=== PATIENT | male | born 1940 | race Caucasian/White ===

== ENCOUNTER → 2016-11-08 | Outpatient (CLI) | payer BC ==
[~2016-11-08] MED LIST: HYZ/50125 PO; PRED1SUS3; SIMV20TA2 PO
[2016-11-08 11:05] LABS: ALT/SGPT 45 U/L (12-78); AST/SGOT 29 U/L (15-37); BLOOD UREA NITROGEN 16 mg/dl (7-18); BUN/CREATININE RATIO 17.9 (10-20); CALCIUM 10.5 mg/dl (8.5-10.1); CARBON DIOXIDE 29 mmol/L (21-32); CHLORIDE 106 mmol/L (98-107); CHOLESTEROL 123 mg/dl (0-200); CREATININE 0.91 mg/dl (0.60-1.40); GLUCOSE 150 mg/dl (70-99); POTASSIUM 4.3 mmol/L (3.5-5.1); SODIUM 140 mmol/L (136-145)
[2016-11-08 11:09] LABS: ALB/GLOB RATIO 1.1 (0.9-2); ALKALINE PHOSPHATASE 47 U/L (45-117); HDL CHOLESTEROL 41 mg/dl; LDL CHOLESTEROL CALCULATED 41 mg/dl; TRIGLYCERIDES 205 mg/dl (0-150); VERY LOW DENSITY LIPOPROT CALC 41 mg/dl
[2016-11-08 11:17] LABS: ESTIMATED AVERAGE GLUCOSE 151 mg/dl; HA1C FLAG Normal (Normal)
== END | disposition home or self-care (01) ==
LOC: C.LABBC 07:00
PROVIDERS: ATTEND Internal Medicine
DX: E11.9 Type 2 diabetes mellitus without complications (principal); E78.5 Hyperlipidemia, unspecified; E83.52 Hypercalcemia; E55.9 Vitamin D deficiency, unspecified

== ENCOUNTER → 2017-07-28 | Outpatient (CLI) | payer BC ==
[2017-07-28 11:03] LABS: HEMATOCRIT 45.9 % (42-52); HEMOGLOBIN 15.6 g/dL (14.0-18.0); MEAN CELL VOLUME 90.7 fL (80-100); MEAN CORPUSCULAR HEMOGLOBIN 30.8 pg (25-34); MEAN PLATELET VOLUME 10.5 fL (7.4-10.4); PLATELET COUNT 189 K/uL (130-400); RED CELL DISTRIBUTION WIDTH CV 13.9 % (11.5-14.5); RED CELL DISTRIBUTION WIDTH SD 45.4 fL (36.4-46.3); WHITE BLOOD COUNT 5.76 K/uL (4.8-10.8)
[2017-07-28 11:31] LABS: BLOOD UREA NITROGEN 17 mg/dl (7-18); CREATININE 1.02 mg/dl (0.60-1.40); GLUCOSE 202 mg/dl (70-99)
[2017-07-28 11:32] LABS: ALBUMIN 3.6 gm/dl (3.4-5.0); ALT/SGPT 46 U/L (12-78); AST/SGOT 33 U/L (15-37); CALCIUM 10.2 mg/dl (8.5-10.1); CARBON DIOXIDE 24 mmol/L (21-32); POTASSIUM 3.8 mmol/L (3.5-5.1); SODIUM 135 mmol/L (136-145)
[2017-07-28 11:36] LABS: ALKALINE PHOSPHATASE 52 U/L (45-117)
[2017-07-28 12:15] LABS: HEMOGLOBIN A1C 8.7 % (4.5-5.6)
== END | disposition home or self-care (01) ==
LOC: C.LABBC 07:07
PROVIDERS: ATTEND Internal Medicine
DX: E11.9 Type 2 diabetes mellitus without complications (principal); R35.1 Nocturia; E21.3 Hyperparathyroidism, unspecified; E55.9 Vitamin D deficiency, unspecified

== ENCOUNTER → 2017-11-25 | Outpatient (CLI) | payer BC ==
[2017-11-25 11:57] LABS: HEMOGLOBIN A1C 9.1 % (4.5-5.6)
[2017-11-25 12:03] LABS: ALT/SGPT 47 U/L (12-78); AST/SGOT 33 U/L (15-37); BLOOD UREA NITROGEN 14 mg/dl (7-18); CALCIUM 10.3 mg/dl (8.5-10.1); CARBON DIOXIDE 28 mmol/L (21-32); CHOLESTEROL 129 mg/dl (0-200); CREATININE 0.96 mg/dl (0.60-1.40); GLUCOSE 223 mg/dl (70-99); POTASSIUM 4.2 mmol/L (3.5-5.1); SODIUM 136 mmol/L (136-145)
[2017-11-25 12:07] LABS: LDL CHOLESTEROL CALCULATED 44 mg/dl
== END | disposition home or self-care (01) ==
LOC: C.LABBC 07:03
PROVIDERS: ATTEND Internal Medicine
DX: E78.5 Hyperlipidemia, unspecified (principal); I10 Essential (primary) hypertension; E11.9 Type 2 diabetes mellitus without complications

== ENCOUNTER 2021-03-19 08:15 | Inpatient (IN) ==
--- NOTE | 2021-03-02 14:57 | PAT Medication Instructions ---
Medication Instructions Date of Service March 02, 2021 Home Medications Medication Instructions Recorded simvastatin 20 mg tablet 20 mg PO HS #90 tab 03/22/20 metformin 500 mg tablet,extended 1,000 mg PO BID 90 Days #360 tab 03/24/20 release 24 hr (Glucophage XR) naproxen sodium 220 mg capsule 440 mg PO DAILY #10 cap 05/22/20 (Aleve) tamsulosin 0.4 mg capsule 0.4 mg PO HS #90 cap 10/30/20 meloxicam 7.5 mg tablet 7.5 mg PO BID PRN #60 tab 12/20/20 glimepiride 2 mg tablet 2 mg PO BID #180 tab 02/06/21 tramadol 50 mg tablet 50 mg PO BID PRN #60 tab 02/06/21 cholecalciferol (vitamin D3) 50 mcg (2,000 unit) capsule 2,000 units PO PM simvastatin 20 mg tablet 20 mg PO HS metformin 500 mg tablet,extended release 24 hr (Glucophage XR) 1,000 mg PO BID naproxen sodium 220 mg capsule (Aleve) 440 mg PO DAILY tamsulosin 0.4 mg capsule 0.4 mg PO HS meloxicam 7.5 mg tablet 7.5 mg PO BID PRN glimepiride 2 mg tablet 2 mg PO BID tramadol 50 mg tablet 50 mg PO BID PRN hydrochlorothiazide 12.5 mg tablet 12.5 mg PO PM losartan 50 mg tablet 50 mg PO PM ASK your surgeon for instructions meloxicam 7.5 mg tablet 7.5 mg PO BID PRN naproxen sodium 220 mg capsule (Aleve) 440 mg PO DAILY DO NOT take the morning of surgery glimepiride 2 mg tablet 2 mg PO BID metformin 500 mg tablet,extended release 24 hr (Glucophage XR) 1,000 mg PO BID Take morning of surgery With a small sip of water, OTHERWISE NOTHING TO EAT OR DRINK AFTER MIDNIGHT: tramadol 50 mg tablet 50 mg PO BID PRN (okay to take up to 4 hours prior to surgery if needed) Take evening before surgery cholecalciferol (vitamin D3) 50 mcg (2,000 unit) capsule 2,000 units PO PM simvastatin 20 mg tablet 20 mg PO HS metformin 500 mg tablet,extended release 24 hr (Glucophage XR) 1,000 mg PO BID tamsulosin 0.4 mg capsule 0.4 mg PO HS glimepiride 2 mg tablet 2 mg PO BID tramadol 50 mg tablet 50 mg PO BID PRN (if needed) hydrochlorothiazide 12.5 mg tablet 12.5 mg PO PM losartan 50 mg tablet 50 mg PO PM Other Notes If you have any questions please call us at [phone] or [phone] or [phone] or [phone]
--- NOTE | 2021-03-06 08:38 | Anesthesiology Consultation ---
Date of Service March 06, 2021 Assessment & Plan (1) Encounter for pre-operative examination: Chart Review Chart Review: Acceptable Risk for Surgery (pending preop Covid testing and surgeon ordered PCP clearance ) and Patient seen in Pre Admission Testing -Awaiting surgeon ordered PCP clearance scheduled 03/07/21 - Check BSG AM DOS Per PAT appt on 03/06/21, patient denies any recent travel or large group activities. No known Covid positive contacts or Covid related symptoms. No known Covid infection in the past 90 days. Pt is vaccinated for Covid. Preop Covid testing scheduled 03/15/21= will await results. Educated on importance of self quarantining, social distancing and wearing mask in public both for the patient after Covid testing done Teaching & Discussion Pre-Anesthesia Teaching/Discussion Notes: Instructed NPO after midnight before surgery,except medications with 15 cc of water. Medication instructions provided according to the PAT guidelines. History Surgery Operation Date: 03/19/21 09:15 Proposed Procedures p L4-L5 Decompression Fusion, Spinal Cord Monitoring - Yony Salcido DO Height/Weight Height: 5 ft 9 in Weight: 118.6 kg Allergies Allergy/AdvReac Type Severity Reaction Status Date / Time No Known Drug Allergies Allergy Verified 03/01/21 11:24 Medications Home Medications Medication Instructions Recorded Confirmed Last Taken cholecalciferol (vitamin D3) 50 2,000 units PO PM #30 cap 02/25/19 03/01/21 Unknown mcg (2,000 unit) capsule simvastatin 20 mg tablet 20 mg PO HS #90 tab 03/22/20 03/01/21 Unknown metformin 500 mg tablet,extended 1,000 mg PO BID 90 Days #360 tab 03/24/20 03/01/21 Unknown release 24 hr (Glucophage XR) naproxen sodium 220 mg capsule 440 mg PO DAILY #10 cap 05/22/20 03/01/21 Unknown (Aleve) tamsulosin 0.4 mg capsule 0.4 mg PO HS #90 cap 10/30/20 03/01/21 Unknown meloxicam 7.5 mg tablet 7.5 mg PO BID PRN #60 tab 12/20/20 03/01/21 Unknown glimepiride 2 mg tablet 2 mg PO BID #180 tab 02/06/21 03/01/21 Unknown tramadol 50 mg tablet 50 mg PO BID PRN #60 tab 02/06/21 03/01/21 Unknown hydrochlorothiazide 12.5 mg tablet 12.5 mg PO PM 03/01/21 03/01/21 Unknown losartan 50 mg tablet 50 mg PO PM 03/01/21 03/01/21 Unknown Past Medical History Medical History (Updated 03/06/21 @ 08:57 by Deborah Razo PA-C) Hyperlipidemia Hyperparathyroidism Pt unaware Does have hx of hypercalcemia Hypertension Osteoarthritis Scoliosis Snores no apnea dx Type 2 diabetes mellitus NIDDM Glucose stable Exercise / Class Metabolic Activity II 4-5 Yardwork/Stairs/Walk up hill (one flight of stairs - no chest pain or SOB ) Past Family History Family History Father Bone cancer S/P placement of cardiac pacemaker Myocardial infarction Mother Alzheimer disease Myocardial infarction Denies family history of Ovarian cancer Prostate cancer Breast cancer Colorectal cancer Past Surgical History Surgical History History of cataract surgery bilat History of colonoscopy History of tooth extraction History of total right hip arthroplasty Hx of laminectomy lumbar Hx of total knee arthroplasty Left Past Anesthesia History No Hx of Anesthesia Complications and No Family Hx of Anesthesia Complications History of PONV No Hx of PONV and No Hx of Motion Sickness Social History Smoking Status: Never smoker Do You Dip or Chew Tobacco: Yes (1 pouch/week) Hx Alcohol Use: Yes Alcohol type: beer alcohol intake frequency: holidays/special occasions only Hx Substance Use: No substance use type: does not use Review of Systems Snoring- apnea unknown- pt lives alone. No hx of sleep study Patient denies chest pain, shortness of breath, dyspnea on exertion, reflux, cough, wheezing, palpitations. No hx of seizures, stroke, NM. No hx of blood clots or blood transfusions Physical Exam Vital Signs VITALS BP 120/72 P 61 TEMP 98.1 SP02 97% RESP 16 Constitutional no acute distress ENMT Mouth: no TMJ clicking Thyromental Distance: > or= 3.5 Finger Breadths (3.5) Mallampati Class: I Missing molars Neck + thick neck and + limited neck extension (mild ) Respiratory normal respiratory effort; no respiratory distress Auscultation: lungs clear to auscultation bilaterally; no wheezes Cardiovascular Rate/Rhythm: regular rate and regular rhythm (occ missed beat ) Heart Sounds: no murmur Vessels: no carotid bruit Musculoskeletal Spine: no pain with cervical ROM Extremities: extremities normal to inspection Psychiatric Orientation: alert Lab Results Anesthesia Preop Results Results Anesthesia Widget: WBC 7.21 K/uL (4.8-10.8) 03/06/21 Hgb 15.3 g/dL (14.0-18.0) 03/06/21 Hct 44.5 % (42-52) 03/06/21 Plt 233 K/uL (130-400) 03/06/21 Na 136 mmol/L (136-145) 03/06/21 K 4.4 mmol/L (3.5-5.1) 03/06/21 Cl 104 mmol/L (98-107) 03/06/21 CO2 26 mmol/L (21-32) 03/06/21 BUN 13 mg/dl (7-18) 03/06/21 Creat 0.90 mg/dl (0.6-1.4) 03/06/21 Glucose Level 147 mg/dl (70-99) H 03/06/21 PT 10.9 Seconds (9.0-12.0) 03/06/21 PTT 26.8 Seconds (21.0-31.0) 03/06/21 INR 1.1 (0.9-1.1) 03/06/21 HA1c 8.4 % (4.5-5.6) H 01/30/21 Blood Type A Positive 03/06/21 Antibody Screen NEGATIVE 03/06/21 Testing Laboratory Results 01/30/21= HGB A1C: 8.4 Electrocardiogram Date: 03/06/21 Findings: + SB @ (55bpm) RBBB. Echocardiogram Date: 03/05/19 EF: 50-55% LV Function: normal RWMA: + none Other Findings: + LVH (mild/concentric ) and + diastolic dysfunction (Grade I ) Valvular Disease: + no significant valvular disease
[~2021-03-19 08:15] MED LIST changes: +ACETAMINOPHEN 500 MG TAB PO SCH; +CeleBREX 200 MG CAP PO SCH; +GABAPENTIN 300 MG CAP PO SCH; -HYZ/50125 PO; +LR 15ML/HR IV SCH; -PRED1SUS3; -SIMV20TA2 PO; +ceFAZolin 2000MG 2,000 MG/15 ML SYR IV SCH
--- NOTE | 2021-03-19 09:47 | History & Physical Report ---
Date of Service March 19, 2021 Assessment & Plan (1) Neurogenic claudication due to lumbar spinal stenosis: Plan: L4-L5 decompression fusion History of Present Illness Chief Complaint: Back and bilateral leg pain Primary Care Provider: Hua Batres MD This is a 81-year-old male presents with chronic system back and leg pain after failing course of nonoperative care is here for surgical invention. Allergies Allergy/AdvReac Type Severity Reaction Status Date / Time No Known Drug Allergies Allergy Verified 03/19/21 09:19 Home Medications Medication Instructions Recorded Confirmed Type cholecalciferol (vitamin D3) 50 2,000 units PO PM #30 cap 02/25/19 03/19/21 History mcg (2,000 unit) capsule simvastatin 20 mg tablet 20 mg PO HS #90 tab 03/22/20 03/19/21 Rx metformin 500 mg tablet,extended 1,000 mg PO BID 90 Days #360 tab 03/24/20 03/19/21 Rx release 24 hr (Glucophage XR) naproxen sodium 220 mg capsule 440 mg PO DAILY #10 cap 05/22/20 03/19/21 Rx (Aleve) tamsulosin 0.4 mg capsule 0.4 mg PO HS #90 cap 10/30/20 03/19/21 Rx glimepiride 2 mg tablet 2 mg PO BID #180 tab 02/06/21 03/19/21 Rx tramadol 50 mg tablet 50 mg PO BID PRN #60 tab 02/06/21 03/19/21 Rx hydrochlorothiazide 12.5 mg tablet 12.5 mg PO PM 03/01/21 03/19/21 History losartan 50 mg tablet 50 mg PO PM 03/01/21 03/19/21 History Past Med/Surg History Medical History (Updated 03/19/21 @ 09:47 by Yony Salcido DO) Hyperlipidemia Hyperparathyroidism Pt unaware Does have hx of hypercalcemia Hypertension Osteoarthritis Scoliosis Snores no apnea dx Type 2 diabetes mellitus NIDDM Glucose stable Surgical History History of cataract surgery bilat History of colonoscopy History of tooth extraction History of total right hip arthroplasty Hx of laminectomy lumbar Hx of total knee arthroplasty Left Family History Father Bone cancer S/P placement of cardiac pacemaker Myocardial infarction Mother Alzheimer disease Myocardial infarction Denies family history of Ovarian cancer Prostate cancer Breast cancer Colorectal cancer Social History Smoking Status: Never smoker Second Hand Exposure: No; Do You Dip or Chew Tobacco: Yes (1 pouch/week); Tobacco Cessation Education Requested by Patient: No Hx Alcohol Use: Yes Alcohol type: beer Alcohol Intake Frequency Comment: socailly Hx Substance Use: No Preferred Language: Wallisian Communication Ability: Effective Visual Impairment: No Limitations Hearing Ability: Normal It Program Auditor Required: No Beliefs That Will Affect Care: None marital status: / Current Living Situation: Alone current occupational status: retired Other Information That Helps Us Care for You: No Feels Safe at Home: Yes Safety Concerns: Feels Safe At This Time Childhood Exposure to Second-Hand Smoke: Yes Dental Care, Regularly: Yes Physical Activity Frequency: Does not Exercise Seatbelt Use: always Sunscreen Use: No Assistive Devices: Glasses Physical Exam Physical Exam: Patient is alert and oriented Heart regular rhythm Lungs clear to auscultation Results & Data ([facility]) Vital Signs (Past 12 Hours) Vital Signs Temp Pulse Resp BP Pulse Ox 03/19/21 09:24 36.8 C 83 20 125/84 93
--- NOTE | 2021-03-19 09:47 | History & Physical Bridge Note ---
Date of Service March 19, 2021 History & Physical Bridge Note I have examined the patient, reviewed the History & Physical and in the interval since the performance of the History & Physical I have noted the following changes of clinical significance: no changes noted
[2021-03-19] MEDS ORDERED: EPINEPHrine INJ 1 MG/ML AMP ONE (09:49)
[2021-03-19] MEDS ORDERED: BUPIVACAINE 0.5 % 5 MG/1 ML MPF 30ML VIAL ONE (09:49)
[2021-03-19] MEDS ORDERED: PROPOFOL IV EMULSION 10 MG/ML 20 ML VIAL IV ONE (09:55)
[2021-03-19] MEDS ORDERED: MIDAZOLAM HCL 1 MG/ML 2ML VIAL ONE (09:55)
[2021-03-19] MEDS ORDERED: ROCURONIUM BROMIDE 10 MG/ML 5 ML VIAL IV ONE (09:55)
[2021-03-19] MEDS ORDERED: LIDOCAINE 2% 2 ML VIAL/AMP(20MG/ML) INFIL ONE (09:55)
[2021-03-19] MEDS ORDERED: fentaNYL citrate 100 MCG/2 ML VIAL ONE ×2 (09:55→11:52)
[2021-03-19] MEDS ORDERED: LABETALOL HCL IV 5 MG/ML 20ML IV PRN (09:57)
[2021-03-19] MEDS ORDERED: ONDANSETRON INJ 2 MG/ML 2 ML VIAL IV PRN ×2 (09:57→13:31)
[2021-03-19] MEDS ORDERED: ATROPINE SULFATE 0.1 MG/ML 10ML SYR IV PRN (09:57)
[2021-03-19] MEDS ORDERED: HYDROmorphone INJ 1 MG/ML SYRINGE IV PRN ×2 (09:57→13:31)
[2021-03-19] MEDS ORDERED: CeleBREX 200 MG CAP ONE (10:00)
[2021-03-19] MEDS ORDERED: ACETAMINOPHEN 500 MG TAB ONE (10:01)
[2021-03-19] MEDS ORDERED: ceFAZolin 2,000 MG/15 ML IV PUSH IV ONE (10:01)
[2021-03-19] MEDS ORDERED: GABAPENTIN 300 MG CAP ONE (10:01)
[2021-03-19] MEDS ORDERED: FLOSEAL HEMOSTATIC MATRIX 10ML TOP ONE (10:42)
[2021-03-19] MEDS ORDERED: GLYCOPYRROLATE 0.2 MG/ML VIAL ONE (10:44)
[2021-03-19] MEDS ORDERED: PHENYLEPHRINE HCL 10 MG/ML VIAL ONE (10:44)
[2021-03-19] MEDS ORDERED: ePHEDrine sulfate 50 MG/ML SYR ONE (10:44)
[2021-03-19] MEDS ORDERED: ONDANSETRON INJ 2 MG/ML 2 ML VIAL ONE (10:44)
[2021-03-19] MEDS ORDERED: NEOSTIGMINE METHYLSULFATE 1 MG/ML 10ML VIAL ONE (10:44)
--- NOTE | 2021-03-19 11:55 | Fluoroscopy Report ---
FL lumbar spine 2-3V CLINICAL HISTORY: L4-L5 DECOMPRESSION FUSION COMPARISON STUDY: Lumbar spine 11/02/2020. FLUOROSCOPY TIME: 14 seconds. FINDINGS: 2 fluoroscopic spot images of the lumbar spine were submitted for review. Exact level is di fficult to confirm due to the spot image but appears to be at L4-5 posterior decompression and fusion with pedicle screws and rods. The hardware appears intact. A disc spacer is in place. IMPRESSION: L4-5 posterior decompression and fusion. The hardware appears intact. ACT 112: Negative or not required by law. Electronically signed by: Hammad Patel M.D. 03/19/2021 11:54 AM
--- NOTE | 2021-03-19 11:56 | Operative Report ---
Post Operative Report Pre & Post Diagnosis Operation Date: 03/19/21 10:35 Pre-Op Diagnosis: Neurogenic Claudication Due to Lumbar Spinal Stenosis L4-L5 Post-Op Diagnosis: Neurogenic Claudication Due to Lumbar Spinal Stenosis L4-L5 I identified the patient and participated in the time-out.: Yes Procedure Operation Date: 03/19/21 10:35 Actual Procedures #1 lumbar decompression with bilateral medial facetectomies and foraminotomies L3-4 and L4-L5. #2 posterior spinal fusion L4-5. #3 placement posterior instrumentation L4-5. #4 interbody fusion L4-L5. #5 placement peek cage 14 x 26 mm at L4-L5. #6 placement locally harvested morselized autograft in the posterior gutters. #7 placement infuse collagen sponge, master graft in the posterior lateral gutters and I factor interbody space. Surgeon Yony Salcido, DO Distribution Coordinator Neelima Bautista Estimated Blood Loss 150 Findings See Below The patient is 5 foot 9 inches tall weighing 114 kg with a BMI in excess of 37. The patient's body habitus did contribute to significant technical difficulty requiring her deepest retractors and longest instruments in order to perform his procedure. This had at least 50% increase to the operative time. Specimens None Indications This is a 81-year-old male who presents with above-mentioned diagnosis after failing since course of nonoperative care is here for surgical invention. Description of Procedure Patient was met with identified informed consent obtained. Patient was then taken to the operative suite underwent an patient placed in a prone position the Delano table on top of the Trey frame. All bony prominences well-padded eyes inspected to ensure no external pressure placed upon the. This point the lumbar spine was prepped and draped in a sterile fashion. Sharp dissection with the assistance of Bovie cautery was performed down to and exposing the lamina and transverse processes of L4 and L5 bilaterally. From caudal to cephalad fashion complete laminectomy of L4 partial laminectomy of L3 was performed including bilateral medial facetectomies and foraminotomies addressing severe spinal stenosis. Pedicle screws were then placed in L4-L5 bilaterally with assistance of fluoroscopy and the proper sized andre placed. By way of a transforaminal approach and left complete discectomy of L4-5 was performed endplates curetted to subcortical being bone and a 14 x 26 mm peek cage filled with I factor tapped in position. Rods are compressed locked in 5 position bilaterally. The transverse processes of L4 and L5 burred to subcortical bleeding bone. Infuse collagen sponge master graft and local autograft was placed in the posterior gutters. 15 round GREGORY drain inserted. The incision was then closed with 1 Vicryl the fascia 2-0 Vicryl subcutaneously and 4 Monocryl for final skin closure. Steri-Strip sterile dressings placed. Patient will continue to PACU stable condition. Please note spinal cord monitoring was utilized at the procedure no changes noted. Lastly Neelima Bautista was present at the entire procedure and while the patient positioning complex portions of the surgery and final skin closure. I attest to the content of the Intraoperative Record and any orders documented therein. Any exceptions are noted below.
[2021-03-19] MEDS ORDERED: LORazepam 0.5 MG TAB PO PRN (13:31)
[2021-03-19] MEDS ORDERED: ACETAMINOPHEN 1,000 MG/100 ML VIAL IV PRN (13:31)
[2021-03-19] MEDS ORDERED: ONDANSETRON 4 MG OD TAB PO PRN (13:31)
[2021-03-19] MEDS ORDERED: FAMOTIDINE 20 MG TAB PO PRN (13:31)
[2021-03-19] MEDS ORDERED: traMADol HCL 50 MG TABLET PO PRN (13:31)
[2021-03-19] MEDS ORDERED: MAGNESIUM HYDROXIDE SUSP 30 ML UDC PO PRN (13:31)
[2021-03-19] MEDS ORDERED: hydrOXYzine HCl 25 MG TAB PO PRN (13:31)
[2021-03-19] MEDS ORDERED: diphenhydrAMINE Capsule 25 MG CAP PO PRN (13:31)
[2021-03-19] MEDS ORDERED: SOD PHOSPHATE/SOD BIPHOSPHATE ENEMA 132 ML BTL PR PRN (13:31)
[2021-03-19] MEDS ORDERED: DO NOT ADMINISTER PNEUMOCOCCAL VACCINE PRN (13:31)
[2021-03-19] MEDS ORDERED: METOCLOPRAMIDE HCL INJ 5 MG/ML 2 ML VIAL IV PRN (13:31)
[2021-03-19] MEDS ORDERED: DO NOT ADMINISTER FLU VACCINE PRN (13:31)
[2021-03-19] MEDS ORDERED: PHARMACY GLYCEMIC MGMT CONSULT PRN (13:31)
[2021-03-19] MEDS ORDERED: NALOXONE HCL 0.4 MG/1 ML VIAL/CARP IV PRN (13:31)
[2021-03-19] MEDS ORDERED: bisacodyL 10 MG SUPP PR PRN (13:31)
[2021-03-19] MEDS ORDERED: LORazepam 0.5 MG/1 ML VIAL IV PRN (13:31)
[2021-03-19] MEDS ORDERED: ALUMINUM/MAGNESIUM SUSP 30 ML UDC PO PRN (13:31)
[2021-03-19] MEDS ORDERED: PROMETHAZINE HCL 12.5 MG in SODIUM CHLORIDE 0.9% 50 ML IV PRN (13:31)
[2021-03-19] MEDS ORDERED: HYDROmorphone INJ 0.5 MG/0.5 ML SYR IV PRN (13:31)
[2021-03-19] MEDS: SODIUM CHLORIDE 0.9% 1000ML 1,000 ML IV SCH ×2 (13:49→20:33)
--- NOTE | 2021-03-19 14:09 | Pharmacy Report ---
Pharmacy Glycemic Short Note 2 - Date of Service March 19, 2021 - Glycemic Short BSG Results (Last 24 hours): 03/19/21 03/19/21 09:01 12:16 POC Glucose 172 H 159 H OUTPATIENT ANTIDIABETIC REGIMEN: * glimepiride, metformin * A1c 8.4% ASSESSMENT: * 81 year old now s/p spinal surgery, POD 0. Pharmacy consulted for glycemic management * Type 2 diabetic managed only on oral agents at home. No steroids given pre op/intraop per chart review * Plan to use novolog postop ~stress 2 dosing. May add small Lantus scale for HS if BSGs trending upward PLAN FOR INPATIENT GLYCEMIC CONTROL: * Hold outpatient oral diabetes medications * Basal insulin * Lantus 0-8 units HS per BSG * Bolus insulin * NovoLog per scale ACHS or Q6hrs while NPO * Goal Range: Low 110 mg/dL - High 150 mg/dL * Correction Factor: 25 mg/dL/unit * Nutritional / Prandial insulin per carb ratio of 1 unit per 9 grams CHO consumed PLAN FOR DISCHARGE: * A1c 8.4% - goal <8 reasonable. Okay to continue home PO diabetic agents as long as no contraindications present
[2021-03-19] MEDS ORDERED: GLUCAGON FOR INJ 1 MG VIAL IM PRN (14:15)
[2021-03-19] MEDS ORDERED: GLUCOSE 10 TABS/TUBE PO PRN (14:15)
[2021-03-19] MEDS ORDERED: CARBOHYDRATES FOR HYPOGLYCEMIA PO PRN (14:15)
[2021-03-19] MEDS ORDERED: DEXTROSE 50% 50 ML SYRINGE IV PRN (14:15)
[2021-03-19] MEDS ORDERED: GLUCOSE 40% GEL 15 GM TUBE PO PRN (14:15)
--- NOTE | 2021-03-19 14:48 | Anesthesiology Progress Note ---
Date of Service March 19, 2021 Anesthesia Post Procedure Vital Signs Vital Signs: Temp Pulse Pulse Pulse Resp BP BP 03/19/21 14:45 36.5 C 56 L 18 115/67 03/19/21 14:00 60 18 106/67 03/19/21 13:30 60 12 118/76 03/19/21 13:20 59 L 24 110/70 03/19/21 13:10 36.4 C L 58 L 16 125/71 03/19/21 13:00 52 L 18 121/71 03/19/21 12:50 36.0 C L 68 17 115/68 03/19/21 12:40 62 13 110/75 03/19/21 12:30 63 12 131/69 03/19/21 12:20 66 12 134/78 03/19/21 12:11 36.2 C L 70 12 130/85 03/19/21 09:24 36.8 C 83 20 125/84 Pulse Ox 03/19/21 14:45 96 03/19/21 14:00 93 03/19/21 13:30 94 03/19/21 13:20 94 03/19/21 13:10 93 03/19/21 13:00 93 03/19/21 12:50 93 03/19/21 12:40 93 03/19/21 12:30 93 03/19/21 12:20 92 03/19/21 12:11 93 03/19/21 09:24 93 Pain Intensity Lower Back: Pain Intensity: 3 Transfer of Care Handoff Completed per policy Notes Mental Status: alert / awake / arousable Patient Amnestic to Procedure: Yes Nausea / Vomiting: adequately controlled Pain: adequately controlled Airway Patency, RR, SpO2: stable & adequate BP & HR: stable & adequate Hydration State: stable & adequate Anesthetic Complications: no major complications apparent
[2021-03-19] MEDS: INSULIN ASPART 100 UNITS/ML 3 ML PEN SC SCH ×3 (15:02→21:29)
[2021-03-19] MEDS: ceFAZolin 2000MG 2,000 MG/15 ML SYR IV SCH (17:31)
[2021-03-19] MEDS: ACETAMINOPHEN 500 MG TAB PO PRN (17:31)
[2021-03-19] MEDS: CHOLECALCIFEROL 1,000 UNITS 25 MCG TAB PO SCH (20:31)
[2021-03-19] MEDS: hydroCHLOROthiazide 25 MG TAB PO SCH (20:31)
[2021-03-19] MEDS: LOSARTAN POTASSIUM 50 MG TAB PO SCH (20:32)
[2021-03-19] MEDS: TAMSULOSIN HCL 0.4 MG CAP PO SCH (20:32)
[2021-03-19] MEDS: SIMVASTATIN 20 MG TAB PO SCH (20:32)
[2021-03-19] MEDS: DOCUSATE SODIUM/SENNA 50/8.6MG TAB PO SCH (20:32)
[2021-03-19] MEDS ORDERED: LANTUS PER UNIT CHARGE SQ SCH (21:00)
[2021-03-19] MEDS ORDERED: GLIMEPIRIDE 2 MG TAB PO SCH (21:00)
[2021-03-20] MEDS: ceFAZolin 2000MG 2,000 MG/15 ML SYR IV SCH (01:31)
[2021-03-20] MEDS: oxyCODONE HCL IR 5 MG TAB (IMMEDIATE RELEASE) PO PRN ×3 (01:31→20:56)
[2021-03-20] MEDS: SODIUM CHLORIDE 0.9% 1000ML 1,000 ML IV SCH (03:06)
[2021-03-20 06:17] LABS: Basophils # (auto) 0.02 K/uL (0-0.2); Basophils % (auto) 0.3 %; Eosinophils # (auto) 0.23 K/uL (0-0.5); Hematocrit (blood only) 38.1 % (42-52); Hemoglobin 12.6 g/dL (14.0-18.0); Immature Granulocytes # (auto) 0.02 K/uL (0.00-0.02); Immature Granulocytes % (auto) 0.3 %; Lymphocytes # (auto) 1.75 K/uL (1.2-3.4); Lymphocytes % (auto) 22.8 %; Mean Corpuscular Hemoglobin 30.7 pg (25-34); Mean Corpuscular Hgb Conc 33.1 g/dL (32-36); Mean Corpuscular Volume 92.7 fL (80-100); Mean Platelet Volume 9.8 fL (7.4-10.4); Monocytes # (auto) 0.81 K/uL (0.11-0.59); Monocytes % (auto) 10.6 %; Neutrophils # (auto) 4.84 K/uL (1.4-6.5); Platelet Count 179 K/uL (130-400); RDW Coefficient of Variation 13.9 % (11.5-14.5); RDW Standard Deviation 47.2 fL (36.4-46.3); Red Blood Count 4.11 M/uL (4.7-6.1); White Blood Count 7.67 K/uL (4.8-10.8)
[2021-03-20 06:52] LABS: BUN Creatinine Ratio 16.9 (10-20); Calcium 9.5 mg/dl (8.5-10.1); Creatinine Clr Calc Pharmacy 89.8 ml/min; Est GFR (Non-African American) 83.7 ml/min; Potassium 3.8 mmol/L (3.5-5.1)
[2021-03-20] MEDS: POLYETHYLENE (MIRALAX) 17 GM PACK PO SCH ×3 (07:03→17:43)
--- NOTE | 2021-03-20 08:14 | Orthopedic Progress Note ---
Date of Service March 20, 2021 Assessment & Plan (1) Neurogenic claudication due to lumbar spinal stenosis: Plan: This time initiate physical therapy monitor his GREGORY output hopefully discharge home in next few days. Admission and Anticipated Discharge Date Admission Date: March 19, 2021 Subjective Back pain controlled leg pain improved Physical Exam Physical Exam: Patient is in the chair at the bedside. Is good strength testing. Appears comfortable. Results & Data ([facility]) Vital Signs (Past 12 Hours) Vital Signs Temp Pulse Resp BP Pulse Ox 03/20/21 07:00 37.3 C 58 L 20 135/72 93 03/20/21 03:39 37.0 C 59 L 18 95/58 L 93 03/19/21 23:26 36.6 C 58 L 18 99/60 L 96
[2021-03-20] MEDS: INSULIN ASPART 100 UNITS/ML 3 ML PEN SC SCH ×4 (08:36→20:58)
[2021-03-20] MEDS: metFORMIN HCL ER 500 MG TABCR PO SCH ×2 (08:36→17:43)
--- NOTE | 2021-03-20 14:28 | Hospitalist Consultation ---
Date of Consultation March 20, 2021 Assessment & Plan (1) Neurogenic claudication due to lumbar spinal stenosis: - S/P Lumbar Decompression/Fusion on 19 March 2021 - Doing well post-operatively; Pain and bowel regimen in place; ambulating the hallways - Surgical management per primary (2) Type 2 diabetes mellitus: - Uncontrolled - last A1c 8.4; currently trending in 140-170 - Had recent medication adjustment around January so will need reassessment of A1c to see if changes were adequate - Glycemic management in place - appreciate assistance (3) Hypertension: - STABLE - Continue HCTZ 12.5 mg daily and Losartan 50 mg daily (4) Hyperlipidemia: - Continue Simvastatin 20 mg HS Supervising Physician Co-Signing Physician Notes Patient seen and examined with Faina Braun PA-C. I agree with her exam findings, review of systems, assessment and plan. I personally reviewed the lab work and imaging as well. patient doing well, minimal pain in his back, ambulating with walker, eating/drinking well, no dyspnea, no fever, no chest pain, vitals stable - s/p lumbar decompression, fusion: management per Dr. Salcido - DM type II: HbA1c is 8.4%, continue outpatient management with PCP - HTN: BP stable, continue HCTZ check labs tomorrow, will follow up on 03/21/31 History of Present Illness Reason for Consultation: Medical Management Attending Physician: Yony Salcido, History of Present Illness Mr. Gonsalves is a 81 y/o male with PMHx of T2DM (Uncontrolled), HTN, HLD, and Spinal Stenosis who is S/P Decompression/Fusion on 19 March. Pt is doing well post-operatively and ambulating the carlos and reporting good pain control. He reports having his diabetes medications adjusted in January as his A1c is 8.4 and d ue for a recheck to see if it has improved. He verbalizes no new complaints at this time. BP and labs are acceptable. Allergies Allergy/AdvReac Type Severity Reaction Status Date / Time No Known Drug Allergies Allergy Verified 03/19/21 09:19 Home Medications Medication Instructions Recorded Confirmed Type cholecalciferol (vitamin D3) 50 2,000 units PO PM #30 cap 02/25/19 03/19/21 History mcg (2,000 unit) capsule simvastatin 20 mg tablet 20 mg PO HS #90 tab 03/22/20 03/19/21 Rx metformin 500 mg tablet,extended 1,000 mg PO BID 90 Days #360 tab 03/24/20 03/19/21 Rx release 24 hr (Glucophage XR) naproxen sodium 220 mg capsule 440 mg PO DAILY #10 cap 05/22/20 03/19/21 Rx (Aleve) tamsulosin 0.4 mg capsule 0.4 mg PO HS #90 cap 10/30/20 03/19/21 Rx glimepiride 2 mg tablet 2 mg PO BID #180 tab 02/06/21 03/19/21 Rx tramadol 50 mg tablet 50 mg PO BID PRN #60 tab 02/06/21 03/19/21 Rx hydrochlorothiazide 12.5 mg tablet 12.5 mg PO PM 03/01/21 03/19/21 History losartan 50 mg tablet 50 mg PO PM 03/01/21 03/19/21 History oxycodone 5 mg tablet 5 mg PO Q6H PRN #30 tab 03/20/21 Rx tramadol 50 mg tablet 50 mg PO Q6H PRN #30 tab 03/20/21 Rx Patient History Medical History Hyperlipidemia Hyperparathyroidism Pt unaware Does have hx of hypercalcemia Hypertension Osteoarthritis Scoliosis Snores no apnea dx Type 2 diabetes mellitus NIDDM Glucose stable Surgical History History of cataract surgery bilat History of colonoscopy History of tooth extraction History of total right hip arthroplasty Hx of laminectomy lumbar Hx of total knee arthroplasty Left Family History Father Bone cancer S/P placement of cardiac pacemaker Myocardial infarction Mother Alzheimer disease Myocardial infarction Denies family history of Ovarian cancer Prostate cancer Breast cancer Colorectal cancer Social History Smoking Status: Never smoker Second Hand Exposure: No; Do You Dip or Chew Tobacco: Yes (1 pouch/week); Tobacco Cessation Education Requested by Patient: No Hx Alcohol Use: Yes Alcohol type: beer Alcohol Intake Frequency Comment: socailly Hx Substance Use: No Preferred Language: Swedish Communication Ability: Effective Visual Impairment: No Limitations Hearing Ability: Normal 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: No Beliefs That Will Affect Care: None marital status: / Current Living Situation: Alone current occupational status: retired Other Information That Helps Us Care for You: No Feels Safe at Home: Yes Safety Concerns: Feels Safe At This Time Childhood Exposure to Second-Hand Smoke: Yes Dental Care, Regularly: Yes Physical Activity Frequency: Does not Exercise Seatbelt Use: always Sunscreen Use: No Assistive Devices: Glasses and Walker Review of Systems Review of Systems: REVIEW OF SYSTEMS General/Constitutional: Denies fever/chills, fatigue, weakness ENT: Denies visual changes, nasal drainage, hearing loss, sore throat, trouble swallowing Cardiovascular: Denies chest pain, palpitations, edema Respiratory: Denies cough, sputum, SOB, wheezing, orthopnea GI: Denies nausea, vomiting, abdominal pain, constipation, diarrhea, melena/hematochezia : Denies dysuria Musculoskeletal: Denies joint/muscle aches, weakness, swelling Neurologic: Denies dizziness/lightheadedness Hematologic/Lymphatic: Denies bleeding/clotting abnormalities Skin: Denies rash, itch, new skin changes, easy bruising Physical Exam Physical Exam: PHYSICAL EXAM General Appearance: WDWN in NAD who is A&O x 3 HEENT: Head is normocephalic/atraumatic; EOMI; PERRLA; Hearing grossly intact; Mucous membranes moist; Pharynx negative for exudate/lesions Neck: Supple; Trachea midline; Neg JVD; Neg lymphadenopathy Heart: RRR with no M/G/R Lungs: CTA in all lung mc bilaterally; Respirations unlabored; Neg accessory muscle use Abdomen: Soft, non-tender, non-distended; Positive BS x 4 quadrants; Neg organomegaly Extremities: Capillary refill < 2 seconds; Neg cyanosis or edema Spine: Surgical dressing applied to incision site with GREGORY drain present Neurological: Speech clear; Gross motor/sensory function intact; Neg focal neurologic deficits Psychiatric: Appropriate mood/affect Skin: Normal Color; Warm/Dry; Neg rashes, ecchymosis, lacerations/ulcerations Results & Data Results & Data ([facility]) Vital Signs (Past 12 Hours) Vital Signs Temp Pulse Resp BP Pulse Ox 03/20/21 11:00 36.6 C 62 18 115/68 93 03/20/21 07:00 37.3 C 58 L 20 135/72 93 03/20/21 03:39 37.0 C 59 L 18 95/58 L 93 PG Care Time/CCT Total # of Minutes Spent Total Time Spent with Patient: Total time spent is greater than 50% in coordination of care (as documented) at patient's floor/unit and/or counseling patient: Coding Level of Care Code 71563 Inpt Consult Level 2 Diagnoses Neurogenic claudication due to lumbar spinal stenosis M48.062 Type 2 diabetes mellitus E11.9 Hypertension I10 Hyperlipidemia E78.5
[2021-03-20] MEDS: DOCUSATE SODIUM/SENNA 50/8.6MG TAB PO SCH (20:56)
[2021-03-20] MEDS: hydroCHLOROthiazide 25 MG TAB PO SCH (20:56)
[2021-03-20] MEDS: SIMVASTATIN 20 MG TAB PO SCH (20:57)
[2021-03-20] MEDS: CHOLECALCIFEROL 1,000 UNITS 25 MCG TAB PO SCH (20:58)
[2021-03-20] MEDS: LOSARTAN POTASSIUM 50 MG TAB PO SCH (20:58)
[2021-03-20] MEDS: TAMSULOSIN HCL 0.4 MG CAP PO SCH (20:58)
[2021-03-21] MEDS: POLYETHYLENE (MIRALAX) 17 GM PACK PO SCH ×5 (00:09→23:41)
[2021-03-21] MEDS: oxyCODONE HCL IR 5 MG TAB (IMMEDIATE RELEASE) PO PRN ×3 (05:18→21:03)
[2021-03-21] MEDS: ACETAMINOPHEN 500 MG TAB PO PRN ×2 (07:52→17:02)
[2021-03-21] MEDS: metFORMIN HCL ER 500 MG TABCR PO SCH ×2 (07:52→17:01)
[2021-03-21] MEDS: INSULIN ASPART 100 UNITS/ML 3 ML PEN SC SCH ×4 (08:59→21:02)
[2021-03-21] MEDS ORDERED: NovoLIN-N (NPH) PER UNIT CHARGE SQ ONE (09:00)
[2021-03-21] MEDS: dexAMETHasone 8 MG in SYRINGE 0 ML IV SCH (09:01)
[2021-03-21] MEDS ORDERED: LANTUS PER UNIT CHARGE SQ ONE (09:15)
--- NOTE | 2021-03-21 09:44 | Hospitalist Progress Note ---
Date of Service March 21, 2021 Assessment & Plan (1) Neurogenic claudication due to lumbar spinal stenosis: Plan: - S/P Lumbar Decompression/Fusion on 19 March 2021 - Doing well post-operatively; Pain and bowel regimen in place; ambulating the hallways - Surgical management per primary (2) Type 2 diabetes mellitus: Plan: - Uncontrolled - last A1c 8.4; currently trending in 140-170 - Had recent medication adjustment around January so will need reassessment of A1c to see if changes were adequate as outpatient - Glycemic management in place - appreciate assistance (3) Hypertension: Plan: - STABLE - Continue HCTZ 12.5 mg daily and Losartan 50 mg daily (4) Hyperlipidemia: Plan: - Continue Simvastatin 20 mg HS Plan: Patient is medically stable at this time. No medical contraindication at this time for discharge when deemed ready by primary service. Hospitalist service will sign off at this time however please contact us if any change in medical status. Admission and Anticipated Discharge Date Admission Date: March 19, 2021 Subjective Continues to do well postoperatively. A bit more pain today but controlled with pain regimen. Continues to ambulate independently with walker in hallways. Glucose is acceptable. Medically stable. Review of Systems Review of Systems: REVIEW OF SYSTEMS General/Constitutional: Denies fever/chills ENT: Denies nasal drainage, sore throat Cardiovascular: Denies chest pain, palpitations, edema Respiratory: Denies cough, sputum, SOB, wheezing, orthopnea GI: Denies nausea, vomiting, abdominal pain, constipation, diarrhea : Denies dysuria Musculoskeletal: + more back pain today but controlled with pain regimen; Denies weakness, swelling Neurologic: Denies dizziness/lightheadedness Skin: Denies rash, itch Physical Exam Physical Exam: PHYSICAL EXAM General Appearance: WDWN in NAD who is A&O x 3 HEENT: Head is normocephalic/atraumatic; Hearing grossly intact; Mucous membranes moist Neck: Supple; Trachea midline; Neg JVD Heart: RRR with no M/G/R Lungs: CTA in all lung mc bilaterally; Respirations unlabored; Neg accessory muscle use Abdomen: Soft, non-tender, non-distended; Positive BS x 4 quadrants Extremities: Neg cyanosis or edema Spine: Surgical dressing applied to incision site with GREGORY drain present Neurological: Speech clear; Gross motor/sensory function intact; Neg focal neurologic deficits Psychiatric: Appropriate mood/affect Skin: Normal Color; Warm/Dry; Neg rashes, ecchymosis, lacerations/ulcerations Results & Data Results & Data ([facility]) Vital Signs (Past 12 Hours) Vital Signs Temp Pulse Resp BP Pulse Ox 03/21/21 07:05 36.8 C 72 18 101/55 L 93 03/20/21 23:35 36.9 C 74 18 118/63 94 PG Care Time/CCT Total # of Minutes Spent Total Time Spent with Patient: Total time spent is greater than 50% in coordination of care (as documented) at patient's floor/unit and/or counseling patient: Coding Level of Care Code 61038 Inpt Consult Level 2 Diagnoses Neurogenic claudication due to lumbar spinal stenosis M48.062 Type 2 diabetes mellitus E11.9 Hypertension I10 Hyperlipidemia E78.5
--- NOTE | 2021-03-21 10:47 | Orthopedic Progress Note ---
Date of Service March 21, 2021 Assessment & Plan (1) Neurogenic claudication due to lumbar spinal stenosis: Plan: At this time we will continue physical therapy monitor GREGORY output anticipate discharge home tomorrow. Admission and Anticipated Discharge Date Admission Date: March 19, 2021 Subjective Back pain controlled leg pain improved Physical Exam Physical Exam: Patient is in the chair at the bedside. Is comfortable. Is good strength testing. Results & Data ([facility]) Vital Signs (Past 12 Hours) Vital Signs Temp Pulse Resp BP Pulse Ox 03/21/21 07:05 36.8 C 72 18 101/55 L 93 03/20/21 23:35 36.9 C 74 18 118/63 94
--- NOTE | 2021-03-21 12:45 | Pharmacy Report ---
Pharmacy Glycemic Short Note 2 - Date of Service March 21, 2021 - Glycemic Short BSG Results (Last 24 hours): 03/20/21 03/20/21 03/21/21 16:46 20:52 08:19 POC Glucose 158 H 148 H 188 H 03/21/21 12:21 POC Glucose 170 H OUTPATIENT ANTIDIABETIC REGIMEN: * glimepiride, metformin * A1c 8.4% ASSESSMENT: 03/21: * POD # 3 s/p spinal surgery * Major received 19 units of insulin yesterday with good glycemic control (no basal, 19 units bolus + metformin) * Insulin will be increased this morning due to administration of dexamethasone 8 mg IV (ordered daily) * Add weight based NPH to cover steroid induced hyperglycemia (0.4 units/kg based on adjusted body weight) * Tighten Novolog CF and CR * Fasting BSG trending upward * Will add Lantus 03/19: * 81 year old now s/p spinal surgery, POD 0. Pharmacy consulted for glycemic management * Type 2 diabetic managed only on oral agents at home. No steroids given preop/intraop per chart review * Plan to use novolog postop ~stress 2 dosing. May add small Lantus scale for HS if BSGs trending upward PLAN FOR INPATIENT GLYCEMIC CONTROL: * Metformin XR 1000 mg PO BID * Basal insulin * Lantus 15 units SQ this AM * NPH 35 units SQ this AM - to be given with DXM * Re-evaluate doses on 03/22 * Bolus insulin * NovoLog per scale ACHS or Q6hrs while NPO * Goal Range: Low 110 mg/dL - High 150 mg/dL * Correction Factor: 20 mg/dL/unit * Nutritional / Prandial insulin per carb ratio of 1 unit per 7 grams CHO consumed PLAN FOR DISCHARGE: * A1c 8.4% - goal <8 reasonable. Okay to continue home PO diabetic agents as long as no contraindications present
[2021-03-21] MEDS: CHOLECALCIFEROL 1,000 UNITS 25 MCG TAB PO SCH (21:05)
[2021-03-21] MEDS: SIMVASTATIN 20 MG TAB PO SCH (21:05)
[2021-03-21] MEDS: DOCUSATE SODIUM/SENNA 50/8.6MG TAB PO SCH (21:05)
[2021-03-21] MEDS: TAMSULOSIN HCL 0.4 MG CAP PO SCH (21:05)
[2021-03-21] MEDS: LOSARTAN POTASSIUM 50 MG TAB PO SCH (21:06)
[2021-03-21] MEDS: hydroCHLOROthiazide 25 MG TAB PO SCH (21:06)
[2021-03-22] MEDS: POLYETHYLENE (MIRALAX) 17 GM PACK PO SCH (05:41)
[2021-03-22 06:30] LABS: Hematocrit (blood only) 37.8 % (42-52); Hemoglobin 13.3 g/dL (14.0-18.0); Mean Corpuscular Hemoglobin 31.7 pg (25-34); Mean Corpuscular Hgb Conc 35.2 g/dL (32-36); Mean Corpuscular Volume 90.2 fL (80-100); Mean Platelet Volume 10.1 fL (7.4-10.4); Platelet Count 209 K/uL (130-400); RDW Coefficient of Variation 13.8 % (11.5-14.5); Red Blood Count 4.19 M/uL (4.7-6.1); White Blood Count 11.11 K/uL (4.8-10.8)
[2021-03-22 06:57] LABS: BUN Creatinine Ratio 17.8 (10-20); Calcium 10.3 mg/dl (8.5-10.1); Creatinine Clr Calc Pharmacy 76.9 ml/min; Est GFR (African American) 85.7 ml/min; Est GFR (Non-African American) 73.9 ml/min; Potassium 3.9 mmol/L (3.5-5.1)
[2021-03-22] MEDS ORDERED: LANTUS PER UNIT CHARGE SQ ONE (07:45)
--- NOTE | 2021-03-22 08:24 | Discharge Summary ---
Date of Service March 22, 2021 Admission HPI Per Admitting Provider This is a 81-year-old male presents with chronic system back and leg pain after failing course of nonoperative care is here for surgical invention. Principal Diagnosis Lumbar spinal stenosis with neurogenic claudication Discharge Data Allergies Allergy/AdvReac Type Severity Reaction Status Date / Time No Known Drug Allergies Allergy Verified 03/19/21 09:19 Consultations 03/19/21 13:31 Consult Hospitalist Routine Procedures Performed Operation Date: 03/19/21 10:35 Actual Procedures p L4-L5 Decompression Fusion, Spinal Cord Monitoring(Bilateral) - Yony Salcido DO Ordered Studies 03/19/21 10:35 FL lumbar spine 2-3V Routine Hospital Course (1) Neurogenic claudication due to lumbar spinal stenosis: Patient with lumbar decompression fusion trial as well as leg orthopedic for postoperative. Postop day 1 was up and ambulating progressed to postop day #2 on postop day #3 GREGORY drain decreased probably. Excellent strength testing. Pain well controlled. Subsequently discharged home. Discharge orders instructions from the chart for further review. Total Time Total Time Spent Total Time Spent (In Minutes): 20 minutes Discharge Plan Discharge Items Patient Disposition: Home - Self-Care Reason For Visit: Spinal Stenosis, Lumbar Region without Neurogenic Discharge Diagnosis: Lumbar spinal stenosis with neurogenic claudication Activity: As commented below Non-emergency contact: Primary Care Provider Call non-emergency contact if: you have any medication questions Follow-up/Referrals: Hua Batres MD [Primary Care Provider] - Diet: Regular Addtl Attending Provider Instructions: ACTIVITY RECOMMENDATIONS: SELF CARE INSTRUCTIONS AFTER THORACIC/LUMBAR FUSIONS 1. You may walk to your tolerance. It is good exercise for your legs and back. Expect some back and intermittent leg aches and pains. 2. You may perform "counter-top" level activities (make a sandwich, fernando with a project, etc.). 3. No bending or lifting of more than 10 pounds or back twisting of any nature (roll like a log when turning in bed). 4. You may ride in a car for 20-30 minutes at a time. No driving until after your first visit with your doctor. 5. Frequent changes of position and restricting sitting to 30 minutes at a time will help limit the amount of back spasms and stiffness you may experience. 6. You may discontinue the use of ambulatory aids (cane, crutches, etc.) once your strength and confidence allow. 7. You may coordinator of online programs the shower and let water strike your incision when you arrive home at least once daily. Do not take a tub bath, sit in a hot tub or go into a swimming pool until after your first recheck in the office. SPECIAL CARE INSTRUCTIONS: VERY IMPORTANT TO READ AND REVIEW A. Your surgical incision has been closed with a cosmetic suture under the skin that will dissolve in about 6 weeks. In 14 days, you can use a pair of clean scissors and cut the suture that is left outside of the skin at the ends of your incision. 1. The small skin tapes can be removed 7 days after surgery if they have not fallen off by that point. 2. You may keep the wound open to air as much as possible to promote healing after post-op day number 5 unless told otherwise by your doctor. 3. If you think the wound looks like it is becoming infected (redness or worsening drainage) and/or you are experiencing fever, chill or worsening back pain and muscle spasms, contact the office so that we may evaluate you as soon as possible. B. Complications are uncommon, but please contact us if you have any signs or symptoms of: 1. wound infection (fever higher than 102.5 degrees F, redness, separation of wound, drainage, or increasing pain from the incision) 2. blood clots in legs (pain, swelling, redness and warmth in legs) 3. urinary tract infection (fever higher than 102.5 degrees F, burning upon urination or increased frequency of urination) 4. nerve problems (inability to walk on your toes or heels, numbness, loss of bowel or bladder control) 5. any other symptoms that concern you C. Please call the office at if you have any concerns or questions about your operation or recovery. D. No smoking! Smoking drastically decreases the chance of a solid fusion. E. Do not take any anti-inflammatory medications (Indocin, Advil, Motrin, Aspirin, Naprosyn, etc.) as these may inhibit the chance of a solid fusion. Tylenol is okay to take for pain. MANAGING PAIN AFTER SPINAL SURGERY 1. Narcotic medication is intended for short-term use and will be provided for surgical pain. Surgical pain usually lasts for a period of 4-6 weeks. Narcotic medication includes Percocet, Vicodin, Darvocet, Tylenol #3 or Lortab. 2. Longer-term pain is more appropriately treated with non-narcotic medication such as Tylenol ES. 3. Muscle spasm is not appropriately treated with narcotics. Muscle relaxers such as Soma, Flexeril or Skelaxin can be used along with Tylenol ES. 4. Remember that we all live with some "aches and pains". This is not unusual or uncommon after an injury or as we get older. a. Back pain is expected and may include muscle spasms for 4 to 6 weeks a fter surgery. The pain should gradually improve. If the pain worsens for no apparent reason, please contact the office. b. Intermittent leg pain may also be experienced and should not be concerned about unless it worsens for no apparent reason. If so, please contact the office. 5. We will provide appropriate medication within the normal guidelines of their prescribed use. We will also be very cautious and aware of potential abuse and extended duration of patients' medication needs. a. Pain medications are for your comfort and to assist with sleep and rest so that the tissue can heal. They are not provided in order to return to normal activity and should not be used through the day. To do so or worsening pain at night can result from ongoing tissue damage and development of tolerance to the prescribed medicine. 6. Please allow 2-3 days to process refills. Prescriptions will not be mailed but must be picked up at the office. FOLLOW UP VISIT: Keep your scheduled follow-up appointment. Any questions, please call the office at . Pending Studies at Discharge: No Stand-Alone Forms: My [facility] Purple, Smoking Cessation Medications and DC Order Prescriptions: New tramadol 50 mg tablet 50 mg PO Q6H PRN (Reason: pain, moderate) Qty: 30 RF: 0 oxycodone 5 mg tablet 5 mg PO Q6H PRN (Reason: pain, severe) Qty: 30 RF: 0 Continued simvastatin 20 mg tablet 20 mg PO HS Qty: 90 RF: 3 metformin [Glucophage XR] 500 mg tablet extended release 24 hr 1,000 mg PO BID 90 Days Qty: 360 RF: 3 tamsulosin 0.4 mg capsule 0.4 mg PO HS Qty: 90 RF: 3 naproxen sodium [Aleve] 220 mg capsule 440 mg PO DAILY Qty: 10 RF: 0 Hold Instructions: held cholecalciferol (vitamin D3) 2,000 unit capsule 2,000 units PO PM Qty: 30 RF: 0 glimepiride 2 mg tablet 2 mg PO BID Qty: 180 RF: 3 tramadol 50 mg tablet 50 mg PO BID PRN (Reason: pain) Qty: 60 RF: 0 losartan 50 mg tablet 50 mg PO PM RF: 0 hydrochlorothiazide 12.5 mg tablet 12.5 mg PO PM RF: 0 Discharge Orders: Discharge Order (Routine); Ordered 03/22/21 Ordered By: Yony Salcido Admission Data Admit Date/Time: 03/19/21 11:58 Attending Provider: Yony Salcido Admit Provider: Yony Salcido Primary Care Provider: Hua Batres Other Providers: Jason Leggett
[2021-03-22] MEDS ORDERED: NovoLIN-N (NPH) PER UNIT CHARGE SQ ONE (09:00)
[2021-03-22] MEDS: INSULIN ASPART 100 UNITS/ML 3 ML PEN SC SCH (09:09)
[2021-03-22] MEDS: metFORMIN HCL ER 500 MG TABCR PO SCH (09:10)
[2021-03-22] MEDS: dexAMETHasone 8 MG in SYRINGE 0 ML IV SCH (09:10)
== END 2021-03-22 11:41 | disposition home or self-care (01) | DRG 455 ==
LOC: ASU 08:15 → 3E 11:58

== ENCOUNTER 2025-03-26 12:05 | Inpatient (IN) ==
--- NOTE | 2025-03-26 12:19 | Emergency Department Note ---
Impression & Plan Generalized weakness, Recurrent falls, Fracture of nasal bone, Elevated lactic acid level, Elevated procalcitonin ED Provider Note HISTORY OF PRESENT ILLNESS: Patient is an 85-year-old male presenting with generalized weakness and recurrent falls. Patient reports that for the last 48 hours he has been feeling very weak and having difficulties getting around at home. He states that he fell twice yesterday. Reports that the first time he fell it felt like his legs gave out from under him and he landed on his face. Denies loss of consciousness. He is not on any anticoagulation or antiplatelet therapies. He denies any chest pain, shortness of breath or lightheadedness prior to his fall. He states that the second time he fell yesterday he fell straight back onto his back. He states that today he was trying to get out of the chair when he slid down to the ground. He denies any chest pain, shortness of breath, abdominal pain, nausea or vomiting. He denies any measured fevers at home, but reports that yesterday he had cycles of chills and sweats. Denies any recent sick contact exposures. Denies any dysuria or hematuria. ROS: as above PHYSICAL EXAM: Primary Survey Airway: Intact Breathing: Normal, breath sounds equal bilaterally Circulation: Skin warm, distal pulses 2+, capillary refill less than 2 seconds Disability Pupils: Equal and reactive to light, 3 mm, brisk GCS: 15, E = 4, V=5, M= 6 Motor Function: Moves all extremities. Sensory: No deficits Secondary Survey GEN: Well developed and well-nourished HENT: Head: No external signs of trauma on the scalp. Mouth/Throat: Midface stable. No malocclusion. Eyes: EOMI. Pupils are 3 mm, round and reactive bilaterally. Nose: No nasal septal hematoma. Patient noted to have diffuse swelling to his nose. Small abrasion to the bridge of the nose. Neck: No midline C-spine tenderness. No step-offs. Cardiovascular: RRR. Pulses present in all 4 extremities. Pulmonary/Chest: BS equal bilaterally. No tenderness or ecchymosis. Abdomen: No tenderness or ecchymosis. Musculoskeletal: Pelvis: No instability. Back: No midline tenderness. No step-offs or deformities. Noted to have a linear abrasion along the left mid back. Extremities: No gross deformities. No TTP. Skin: As noted above. Neuro: No focal neurological deficits. GCS as above. Psych: Normal mood and affect. MDM: - Vitals signs stable - History obtained via patient. History as above. - Chronic conditions affecting care: hyperparathyroidism; DM-2; HTN; HLD - Differential diagnoses include, but are not limited to: UTI; pneumonia; viral syndrome; CVA; intracranial hemorrhage; ACS; electrolyte abnormality; dysrhythmia; dehydration - Order placed for continuous cardiac monitoring. At this time, monitor showed rate of 62 bpm with normal sinus rhythm, per my interpretation. - External medical records reviewed. Pain management procedure note date 02/23/2025 was reviewed. Patient had interlaminar epidural steroid injection at L2/L3 at that visit - EKG image interpreted by myself showed normal sinus rhythm. Rate 63 bpm. QT 420. No acute ischemic changes. Noted to have a right bundle branch block. - Laboratory workup interpreted by myself showed leukocytosis (WBC 11.59) with neutrophil predominance; elevated INR (1.2); slight hyponatremia (Na 130); hypokalemia (K 3.3); elevated lactate (2.3); normal AST/ALT; normal troponin; normal CK; elevated procalcitonin (1.18); normal TSH - Negative Lyme/anaplasmosis/babesia - UA ordered - Viral respiratory panel negative. - CXR image reviewed by myself is negative for pneumonia, per my interpretation. - Blood cultures obtained - Patient given 1L NS. Tetanus updated in ER. - Given 2g IV rocephin and IV vancomycin for empiric antibiotic coverage in ER. - Discussion was had with caseworker about patient's case and need for admission - Hospitalist consulted for admission - [facility] ASSESSMENT AND PLAN: Diagnosis: Generalized weakness; recurrent falls; fracture of the nasal bone; elevated lactic acid level; elevated procalcitonin Plan: Admit Past Med/Surg History Problem List (Updated 03/26/25 @ 13:54 by Clare Fields MD) Elevated procalcitonin (Acute) Elevated lactic acid level (Acute) Fracture of nasal bone (Acute) Recurrent falls (Acute) Generalized weakness (Acute) Postlaminectomy syndrome of lumbosacral region Piriformis syndrome of right side Hip pain Hypercalcemia (Acute) Vitamin D deficiency (Acute) Morbid obesity (Chronic) Lumbar disc herniation with radiculopathy Scoliosis Neurogenic claudication due to lumbar spinal stenosis Encounter for pre-operative examination 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 Type 2 diabetes mellitus (Chronic) NIDDM Glucose stable Osteoarthritis (Acute) Hypertension (Chronic) Hyperparathyroidism (Acute) Hyperlipidemia (Chronic) Medical History Male pelvic pain Scoliosis Snores no apnea dx Surgical History History of lumbosacral spine surgery History of total right hip replacement History of colonoscopy History of tooth extraction History of cataract surgery bilat Hx of laminectomy lumbar Family History Father Bone cancer S/P placement of cardiac pacemaker Myocardial infarction Mother Alzheimer disease Myocardial infarction Denies family history of Ovarian cancer Prostate cancer Breast cancer Colorectal cancer Social History Smoking Status: Never smoker Second Hand Exposure: No; Do You Dip or Chew Tobacco: Yes; Hx Alcohol Use: Yes (Very seldom ) Alcohol type: beer Alcohol Intake Frequency Comment: socailly Hx Substance Use: No Preferred Language: Comoran Communication Ability: Effective Visual Impairment: No Limitations Hearing Ability: Normal Distribution Clerk Required: No Beliefs That Will Affect Care: None marital status: / Current Living Situation: Alone current occupational status: retired Feels Safe at Home: Yes Childhood Exposure to Second-Hand Smoke: Yes Dental Care, Regularly: Yes Physical Activity Frequency: Daily Physical Activity Frequency Comment: Exercise bike 30 minutes each day Seatbelt Use: always Sunscreen Use: No Assistive Devices: Walker Allergies Allergies Allergy/AdvReac Type Severity Reaction Status Date / Time No Known Drug Allergies Allergy Verified 03/15/25 07:47 Home Meds Home Medications Medication Instructions Recorded Confirmed cholecalciferol (vitamin D3) 50 2,000 units PO PM #30 caps 02/25/19 03/15/25 mcg (2,000 unit) capsule acetaminophen 500 mg tablet 1,000 mg PO BID PRN fever 12/17/24 03/15/25 Previous Rx's Medication Instructions Recorded blood sugar diagnostic ([employer] #100 ea 06/01/24 Ultra Test strips) lancets 33 gauge (OneTouch Delica #100 ea 06/08/24 Plus Lancet) metformin 500 mg tablet,extended 1,000 mg (2 x 500 mg) PO BID 90 06/22/24 release 24 hr days #360 tabs glimepiride 2 mg tablet 2 mg PO BID #180 tabs 09/14/24 hydrochlorothiazide 12.5 mg tablet 12.5 mg PO PM #90 tabs 09/14/24 tamsulosin 0.4 mg capsule 0.4 mg PO HS #90 caps 09/14/24 losartan 50 mg tablet 50 mg PO PM #90 tabs 12/27/24 simvastatin 20 mg tablet 20 mg PO HS #90 tabs 03/22/25 Results & Data (ED) Vital Signs Vital Signs - 24 hr 03/26/25 12:05 03/26/25 12:05 03/26/25 12:50 Temperature 37.3 C 37.3 C Temperature Source Oral Oral Pulse Rate 77 68 Pulse Rate [Apical] 77 Respiratory Rate 15 15 Blood Pressure 109/62 Blood Pressure [Left Arm] 109/62 Blood Pressure Mean 77 Blood Pressure Mean [Left Arm] 77 Blood Pressure Position Semi-fowlers Blood Pressure Position [Left Arm] Semi-fowlers Pulse Oximetry 94 94 Oxygen Delivery Method Room Air Room Air Sepsis Recent Fever Within 48 Hours Yes Sepsis New/Unexplained Change in Mental Status No Sepsis Action Taken by Nursing No Action Required 03/26/25 13:05 Temperature Temperature Source Pulse Rate Pulse Rate [Apical] 62 Respiratory Rate 12 Blood Pressure Blood Pressure [Left Arm] 118/61 Blood Pressure Mean Blood Pressure Mean [Left Arm] 80 Blood Pressure Position Blood Pressure Position [Left Arm] Semi-fowlers Pulse Oximetry 95 Oxygen Delivery Method Room Air Sepsis Recent Fever Within 48 Hours Sepsis New/Unexplained Change in Mental Status Sepsis Action Taken by Nursing Laboratory Data 03/26/25 12:20 03/26/25 12:20 Lab Results 03/26/25 03/26/25 Range/Units 12:20 12:59 WBC 11.59 H (4.8-10.8) K/ul RBC 3.96 L (4.70-6.10) M/uL Hgb 12.4 L (14.0-18.0) g/dl Hct 36.0 L (42.0-52.0) % MCV 90.9 (80.0-100.0) fL MCH 31.3 (25.0-34.0) pg MCHC 34.4 (32.0-36.0) g/dL RDW Std Deviation 43.6 (36.4-46.3) fL RDW Coeff of Sherita 13.2 (11.5-14.5) % Plt Count 147 (130-400) K/uL MPV 9.8 (9.4-12.4) fL Immature Gran % (Auto) 0.4 % Neut % (Auto) 91.5 % Lymph % (Auto) 4.1 % Swisher % (Auto) 3.7 % Eos % (Auto) 0.0 % Baso % (Auto) 0.3 % Neut # (Auto) 10.60 H (1.40-6.50) K/uL Lymph # (Auto) 0.48 L (1.20-3.40) K/uL Swisher # (Auto) 0.43 (0.11-0.59) K/uL Eos # (Auto) 0.00 (0.00-0.50) K/uL Baso # (Auto) 0.03 (0.00-0.20) K/uL Immature Gran # (Auto) 0.05 (0.01-0.20) K/uL PT 12.9 H (9.0-12.0) Seconds INR 1.2 H (0.9-1.1) Sodium 130 L (136-145) mmol/L Potassium 3.3 L (3.5-5.1) mmol/L Chloride 101 (98-107) mmol/L Carbon Dioxide 21 (21-32) mmol/L Anion Gap 8 (3-11) BUN 16 (6-23) mg/dl Creatinine 0.82 (0.6-1.4) mg/dl Est Cr Clr Drug Dosing Not Reportable eGFR 87.16 BUN/Creatinine Ratio 19.5 (10-20) Glucose 84 (70-99(Fasting)) mg/dl Lactate 2.3 H* (0.4-2.0) mmol/L Calcium 10.0 (8.6-10.3) mg/dl Magnesium 1.7 (1.7-2.4) mg/dl Total Bilirubin 0.8 (0.2-1.0) mg/dl AST 28 (13-39) U/L ALT 28 (7-52) U/L Alkaline Phosphatase 45 (34-104) U/L Total Creatine Kinase 158 (30-223) U/L Troponin I High Sens 14.3 (0-20) pg/ml Total Protein 6.0 (6.0-8.3) gm/dl Albumin 3.3 L (3.4-5.0) gm/dl Globulin 2.7 (2.5-4.0) gm/dl Albumin/Globulin Ratio 1.2 (0.9-2) Procalcitonin 1.18 H (0-0.5) ng/ml TSH 1.942 (0.300-4.500) uIu/ml Adenovirus (PCR) Not Detected (NotDetected) Anaplasma Smear See Comment Babesia Smear See Comment B. pertussis DNA (PCR) Not Detected (NotDetected) B.parapertussis DNA PCR Not Detected (NotDetected) Lyme Disease Screen Negative (Negative) C. pneumoniae DNA (PCR) Not Detected (NotDetected) Coronavirus OC43 (PCR) Not Detected (NotDetected) Coronavirus HKU1 (PCR) Not Detected (NotDetected) Coronavirus 229E (PCR) Not Detected (NotDetected) SARS-CoV-2 (PCR) Not Detected (NotDetected) Coronavirus NL63 (PCR) Not Detected (NotDetected) Human Metapneumovir PCR Not Detected (NotDetected) Influenza Type A (PCR) Not Detected (NotDetected) Influenza Type B (PCR) Not Detected (NotDetected) M. pneumoniae (PCR) Not Detected (NotDetected) Parainfluenza 1 (PCR) Not Detected (NotDetected) Parainfluenza 2 (PCR) Not Detected (NotDetected) Parainfluenza 3 (PCR) Not Detected (NotDetected) Parainfluenza 4 (PCR) Not Detected (NotDetected) RSV (PCR) Not Detected (NotDetected) Entero/Rhino (PCR) Not Detected (NotDetected) Administered Medications Sodium Chloride (Nss) 1,000 mls @ 999 mls/hr IV .Q1H1M ONE Stop: 03/26/25 14:14 Last Admin: 03/26/25 13:41 Dose: 999 mls/hr Documented By: CEF Discontinued Medications Diphtheria/Pertussis/Tetanus Vacc (Diphther/Tetan/Pertus Vaccine (Tdap, Adol/Adult) 0.5ml) 0.5 ml IM .ONCE ONE Stop: 03/26/25 12:15 Last Admin: 03/26/25 13:42 Dose: 0.5 ml Documented By: CEF Ceftriaxone Sodium (Rocephin) 2,000 mg in 50 mls @ 100 mls/hr IV NOW STA Stop: 03/26/25 13:14 Last Admin: 03/26/25 13:42 Dose: 100 mls/hr Documented By: CEF Imaging Data Radiologist's Impression: Cervical Spine CT 03/26/25 12:14 CT SCAN OF THE CERVICAL SPINE CLINICAL HISTORY: Fall. COMPARISON STUDY: None. TECHNIQUE: CT scan of the cervical spine is performed from the skull base to the upper thoracic spine. Images are reviewed in the axial, sagittal, and coronal planes. IV contrast was not administered for this examination. A dose lowering technique was utilized adhering to the principles of ALARA. FINDINGS: Slight loss of height of the superior endplate of T1 is likely chronic. No acute cervical spine fractures are present. Facet joints are intact. There is moderate to severe multilevel facet arthrosis and degenerative disc disease within the cervical spine. There is no prevertebral edema. IMPRESSION: No acute cervical spine fracture or subluxation. ACT 112: Negative or not required by law. Electronically signed by: Jb Jackson M.D. 03/26/2025 1:04 PM Chest X-Ray 03/26/25 12:14 XR chest 1V portable CLINICAL HISTORY: weakness COMPARISON STUDY: Chest radiograph June 11, 2021. FINDINGS: There is mild elevation of the right hemidiaphragm. Lungs are clear. There is no pneumothorax or pleural effusion. Cardiac size is normal. Mediastinal contours are normal. There is no evidence for pulmonary edema. IMPRESSION: No acute cardiopulmonary findings. ACT 112: Negative or not required by law. Electronically signed by: Jb Jackson M.D. 03/26/2025 1:[address] 03/26/25 12:[address] WITHOUT CONTRAST CLINICAL HISTORY: nasal pain s/p fall COMPARISON STUDY: None. TECHNIQUE: A maxillofacial CT was performed without IV contrast. Coronal and sagittal reformats were viewed. Automated exposure control was utilized for the study. A dose lowering technique was utilized adhering to the principles of ALARA. FINDINGS: Alignment of the temporomandibular joints is anatomic. No mandibular fracture is present. There are acute mildly displaced depressed anterior bilateral nasal bone fractures. Nasal contusion is noted. There is soft tissue gas within the nose, right preseptal soft tissues and anterior to the frontal sinuses. Orbital floors are intact. Globes are intact. There is no retrobulbar hematoma. There is mild sinus mucosal thickening. There is no skull base fracture. IMPRESSION: 1. Acute mildly displaced depressed bilateral nasal bone fractures. 2. Nasal soft tissue swelling and soft tissue gas, as described above. ACT 112: Negative or not required by law. Electronically signed by: Jb Jackson M.D. 03/26/2025 1:[address] 03/26/25 12:14 CT SCAN OF THE BRAIN WITHOUT IV CONTRAST CLINICAL HISTORY: Fall. COMPARISON STUDY: None. TECHNIQUE: Unenhanced axial CT scan of the brain was performed from the vertex to the skull base. A dose lowering technique was utilized adhering to the principles of ALARA. FINDINGS: No acute intracranial hemorrhage, midline shift or mass effect is present. Ventricular system is unremarkable. Basal cisterns are patent. There are no extra-axial collections. White matter hypodensity suggests small vessel disease. There are no calvarial fractures. There are acute mildly displaced depressed bilateral nasal bone fractures. Associated soft tissue gas is present, overlying the nose and frontal sinuses as well as the right preseptal soft tissues. IMPRESSION: 1. No acute intracranial findings. 2. No calvarial fractures. 3. Acute mildly displaced depressed bilateral nasal bone fractures. Associated nasal contusion and soft tissue gas, as described above. ACT 112: Negative or not required by law. Electronically signed by: Jb Jackson M.D. 03/26/2025 12:58 PM Discharge Plan Visit Data Chief Complaint: Fall ED Provider: Clare Fields Discharge Problem: Generalized weakness, Recurrent falls, Fracture of nasal bone, Elevated lactic acid level, Elevated procalcitonin Patient Disposition: Admitted As Inpatient Condition: Fair Forms Stand Alone Forms: My [facility] Prescriptions Prescriptions: No Action (DME) lancets [OneTouch Delica Plus Lancet] 33 gauge misc See Rx Instructions .Route Qty: 100 3RF Rx Instructions: testing daily metformin 500 mg tablet extended release 24 hr 1,000 mg PO BID 90 Days Qty: 360 3RF glimepiride 2 mg tablet 2 mg PO BID Qty: 180 3RF hydrochlorothiazide 12.5 mg tablet 12.5 mg PO PM Qty: 90 3RF tamsulosin 0.4 mg capsule 0.4 mg PO HS Qty: 90 3RF losartan 50 mg tablet 50 mg PO PM Qty: 90 3RF simvastatin 20 mg tablet 20 mg PO HS Qty: 90 3RF cholecalciferol (vitamin D3) 2,000 unit capsule 2,000 units PO PM Qty: 30 (DME) OneTouch Ultra Test Strip See Rx Instructions .Route Qty: 100 3RF Rx Instructions: testing 1 time daily acetaminophen 500 mg tablet 1,000 mg PO BID PRN (Reason: fever) Referrals Referrals: Hua Batres MD [Primary Care Provider] -
[2025-03-26 12:42] LABS: Hematocrit (blood only) 36.0 % (42.0-52.0); Hemoglobin 12.4 g/dl (14.0-18.0); Mean Corpuscular Hemoglobin 31.3 pg (25.0-34.0); Mean Corpuscular Volume 90.9 fL (80.0-100.0); Platelet Count 147 K/uL (130-400); RDW Standard Deviation 43.6 fL (36.4-46.3); Red Blood Count 3.96 M/uL (4.70-6.10); White Blood Count 11.59 K/ul (4.8-10.8)
--- NOTE | 2025-03-26 13:00 | CT Scan Report ---
CT SCAN OF THE BRAIN WITHOUT IV CONTRAST CLINICAL HISTORY: Fall. COMPARISON STUDY: None. TECHNIQUE: Unenhanced axial CT scan of the brain was performed from the vertex to the skull base. A dose lowering technique was utilized adhering to the principles of ALARA. FINDINGS: No acute intracranial hemorrhage, midline shift or mass effect is present. Ventricular syst em is unremarkable. Basal cisterns are patent. There are no extra-axial collections. White matter hyp odensity suggests small vessel disease. There are no calvarial fractures. There are acute mildly disp laced depressed bilateral nasal bone fractures. Associated soft tissue gas is present, overlying the nose and frontal sinuses as well as the right preseptal soft tissues. IMPRESSION: 1. No acute intracranial findings. 2. No calvarial fractures. 3. Acute mildly displaced depressed bilateral nasal bone fractures. Associated nasal contusion and so ft tissue gas, as described above. ACT 112: Negative or not required by law. Electronically signed by: Jb Jackson M.D. 03/26/2025 12:58 PM
[2025-03-26 13:02] LABS: Alanine Aminotransferase 28 U/L (7-52); Albumin Globulin Ratio 1.2 (0.9-2); Alkaline Phosphatase 45 U/L (34-104); Anion Gap 8 (3-11); Bilirubin,Total 0.8 mg/dl (0.2-1.0); Blood Urea Nitrogen 16 mg/dl (6-23); Calcium 10.0 mg/dl (8.6-10.3); Carbon Dioxide 21 mmol/L (21-32); Chloride 101 mmol/L (98-107); Creatine Kinase 158 U/L (30-223); Globulin 2.7 gm/dl (2.5-4.0); Glucose 84 mg/dl (70-99(Fasting)); Magnesium 1.7 mg/dl (1.7-2.4); Potassium 3.3 mmol/L (3.5-5.1); Procalcitonin 1.18 ng/ml (0-0.5); Sodium 130 mmol/L (136-145); Total Protein 6.0 gm/dl (6.0-8.3)
--- NOTE | 2025-03-26 13:03 | CT Scan Report ---
MAXILLOFACIAL CT WITHOUT CONTRAST CLINICAL HISTORY: nasal pain s/p fall COMPARISON STUDY: None. TECHNIQUE: A maxillofacial CT was performed without IV contrast. Coronal and sagittal reformats were viewed. Automated exposure control was utilized for the study. A dose lowering technique was utiliz ed adhering to the principles of ALARA. FINDINGS: Alignment of the temporomandibular joints is anatomic. No mandibular fracture is present. T here are acute mildly displaced depressed anterior bilateral nasal bone fractures. Nasal contusion is noted. There is soft tissue gas within the nose, right preseptal soft tissues and anterior to the fr ontal sinuses. Orbital floors are intact. Globes are intact. There is no retrobulbar hematoma. There is mild sinus mucosal thickening. There is no skull base fracture. IMPRESSION: 1. Acute mildly displaced depressed bilateral nasal bone fractures. 2. Nasal soft tissue swelling and soft tissue gas, as described above. ACT 112: Negative or not required by law. Electronically signed by: Jb Jackson M.D. 03/26/2025 1:02 PM
[2025-03-26 13:04] LABS: INR 1.2 (0.9-1.1); Prothrombin Time 12.9 Seconds (9.0-12.0)
[2025-03-26 13:06] LABS: Immature Granulocytes # (auto) 0.05 K/uL (0.01-0.20); Immature Granulocytes % (auto) 0.4 %
--- NOTE | 2025-03-26 13:06 | CT Scan Report ---
CT SCAN OF THE CERVICAL SPINE CLINICAL HISTORY: Fall. COMPARISON STUDY: None. TECHNIQUE: CT scan of the cervical spine is performed from the skull base to the upper thoracic spine . Images are reviewed in the axial, sagittal, and coronal planes. IV contrast was not administered fo r this examination. A dose lowering technique was utilized adhering to the principles of ALARA. FINDINGS: Slight loss of height of the superior endplate of T1 is likely chronic. No acute cervical s pine fractures are present. Facet joints are intact. There is moderate to severe multilevel facet art hrosis and degenerative disc disease within the cervical spine. There is no prevertebral edema. IMPRESSION: No acute cervical spine fracture or subluxation. ACT 112: Negative or not required by law. Electronically signed by: Jb Jackson M.D. 03/26/2025 1:04 PM
[2025-03-26 13:17] LABS: Thyroid Stimulating Hormone 1.942 uIu/ml (0.300-4.500)
[2025-03-26] MEDS ORDERED: VANCOMYCIN CONSULT ACTIVE PRN (13:21)
--- NOTE | 2025-03-26 13:26 | XRay Report ---
XR chest 1V portable CLINICAL HISTORY: weakness COMPARISON STUDY: Chest radiograph June 11, 2021. FINDINGS: There is mild elevation of the right hemidiaphragm. Lungs are clear. There is no pneumothor ax or pleural effusion. Cardiac size is normal. Mediastinal contours are normal. There is no evidence for pulmonary edema. IMPRESSION: No acute cardiopulmonary findings. ACT 112: Negative or not required by law. Electronically signed by: Jb Jackson M.D. 03/26/2025 1:25 PM
[2025-03-26 13:28] LABS: Chlamydia pneumoniae PCR Not Detected (NotDetected); Coronavirus 229E PCR Not Detected (NotDetected); Coronavirus CoV-2 (COVID19)PCR Not Detected (NotDetected); Coronavirus HKU1 PCR Not Detected (NotDetected); Coronavirus NL63 PCR Not Detected (NotDetected); Coronavirus OC43PCR Not Detected (NotDetected); Human Metapneumovirus PCR Not Detected (NotDetected); Parainfluenza Virus 1 PCR Not Detected (NotDetected); Parainfluenza Virus 2 PCR Not Detected (NotDetected); Parainfluenza Virus 3 PCR Not Detected (NotDetected); Parainfluenza Virus 4 PCR Not Detected (NotDetected); Respiratory Syncytial VirusPCR Not Detected (NotDetected); Rhinovirus/Enterovirus PCR Not Detected (NotDetected)
[2025-03-26] MEDS: SODIUM CHLORIDE 0.9% 1,000 ML IV ONE (13:41)
[2025-03-26] MEDS: cefTRIAXone SODIUM 2,000 MG/50 ML BAG IV STA (13:42)
[2025-03-26] MEDS: DIPHTHER/TETAN/PERTUS Vaccine (Tdap, Adol/Adult) 0.5mL IM ONE (13:42)
[2025-03-26 13:47] LABS: Lyme Screen Rflx Confirmation Negative (Negative)
[2025-03-26] MEDS: VANCOMYCIN HCL 2,000 MG in SODIUM CHLORIDE 0.9% 500 ML IV ONE (14:36)
--- NOTE | 2025-03-26 14:36 | History & Physical Report ---
Date of Service March 26, 2025 Assessment & Plan (1) Viral illness: Plan: Suspected on admission with intermittent low-grade fevers, weakness, multiple falls. IV fluids. Supportive care. OT and PT evaluations will be ordered when appropriate. Rule out UTI. Awaiting urine analysis results. Continue Rocephin for now (2) Weakness: Plan: Treat suspected viral illness. OT and PT assessments when appropriate (3) Hypokalemia: Plan: Oral potassium replacement ordered. Serial labs (4) Type 2 diabetes mellitus: Plan: Will discontinue glipizide indefinitely in this age group and due to propensity for causing hypoglycemia. ADA diet. Sliding scale coverage as needed (5) Hypertension: Plan: Stable. Continue current medical management Plan To be determined. OT and PT assessments will be ordered when appropriate. He lives alone History of Present Illness Chief Complaint: Weakness, falls Primary Care Provider: Hua Batres MD 85-year-old white male with apparent viral illness who developed weakness and nausea for the past 2 days and has fallen several times. He has suffered a nasal bone fracture that does not need immediate attention. Urine analysis is pending but he has no symptoms of dysuria or hematuria or urinary retention. Potassium is mildly low on admission at 3.3. White count and procalcitonin are elevated. CT scans of the C-spine, face, and head were done in the ED. No evidence of intracranial bleed or previous CVA. He is admitted for further evaluation and treatment. He received intravenous Rocephin and vancomycin in the ED. Rocephin will continue on admission until cultures prove negative for bacterial infection Allergies Allergy/AdvReac Type Severity Reaction Status Date / Time No Known Drug Allergies Allergy Verified 03/15/25 07:47 Home Medications Medication Instructions Recorded Confirmed Type cholecalciferol (vitamin D3) 50 2,000 units PO PM #30 caps 02/25/19 03/15/25 History mcg (2,000 unit) capsule blood sugar diagnostic (HumacyteTouch #100 ea 06/01/24 03/15/25 Rx Ultra Test strips) lancets 33 gauge (OneTouch Delica #100 ea 06/08/24 03/15/25 Rx Plus Lancet) metformin 500 mg tablet,extended 1,000 mg (2 x 500 mg) PO BID 90 06/22/24 03/15/25 Rx release 24 hr days #360 tabs glimepiride 2 mg tablet 2 mg PO BID #180 tabs 09/14/24 03/15/25 Rx hydrochlorothiazide 12.5 mg tablet 12.5 mg PO PM #90 tabs 09/14/24 03/15/25 Rx tamsulosin 0.4 mg capsule 0.4 mg PO HS #90 caps 09/14/24 03/15/25 Rx acetaminophen 500 mg tablet 1,000 mg PO BID PRN fever 12/17/24 03/15/25 History losartan 50 mg tablet 50 mg PO PM #90 tabs 12/27/24 03/15/25 Rx simvastatin 20 mg tablet 20 mg PO HS #90 tabs 03/22/25 Rx Past Med/Surg History Problem List (Updated 03/26/25 @ 14:34 by John Flores MD) Hypokalemia Weakness Viral illness Elevated procalcitonin (Acute) Elevated lactic acid level (Acute) Fracture of nasal bone (Acute) Recurrent falls (Acute) Generalized weakness (Acute) Postlaminectomy syndrome of lumbosacral region Piriformis syndrome of right side Hip pain Hypercalcemia (Acute) Vitamin D deficiency (Acute) Morbid obesity (Chronic) Lumbar disc herniation with radiculopathy Scoliosis Neurogenic claudication due to lumbar spinal stenosis Encounter for pre-operative examination 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 Type 2 diabetes mellitus (Chronic) NIDDM Glucose stable Osteoarthritis (Acute) Hypertension (Chronic) Hyperparathyroidism (Acute) Hyperlipidemia (Chronic) Medical History Male pelvic pain Scoliosis Snores no apnea dx Surgical History History of lumbosacral spine surgery History of total right hip replacement History of colonoscopy History of tooth extraction History of cataract surgery bilat Hx of laminectomy lumbar Family History Father Bone cancer S/P placement of cardiac pacemaker Myocardial infarction Mother Alzheimer disease Myocardial infarction Denies family history of Ovarian cancer Prostate cancer Breast cancer Colorectal cancer Social History Smoking Status: Never smoker Second Hand Exposure: No; Do You Dip or Chew Tobacco: Yes; Hx Alcohol Use: Yes (Very seldom ) Alcohol type: beer Alcohol Intake Frequency Comment: socailly Hx Substance Use: No Preferred Language: Sami Communication Ability: Effective Visual Impairment: No Limitations Hearing Ability: Normal [employer] Installer Required: No Beliefs That Will Affect Care: None marital status: / Current Living Situation: Alone current occupational status: retired Feels Safe at Home: Yes Childhood Exposure to Second-Hand Smoke: Yes Dental Care, Regularly: Yes Physical Activity Frequency: Daily Physical Activity Frequency Comment: Exercise bike 30 minutes each day Seatbelt Use: always Sunscreen Use: No Assistive Devices: Walker Review of Systems 2 Review of Systems: Constitutionallow-grade fever at home with nausea and weakness. Denies rigors ENTno blurred vision, no double vision, no epistaxis, no sore throat. Nasal bridge abrasion and some nasal edema noted Respiratoryno cough, no wheezing, no shortness of breath Cardiacno palpitations, no chest pain, no syncope Luis Carlos nausea, vomiting, diarrhea, melena, hematochezia GUno urinary retention, no urinary incontinence, no dysuria, no hematuria Musculoskeletalno joint pain, no muscle tenderness Skinno bruising, no rashes, no pruritus Neurono isolated weakness, no paresthesia. Generalized weakness and falls Psychno depression, no anxiety Physical Exam 2 Physical Exam: General-alert and oriented x3, no fever, no chills HEENT-head atraumatic and normocephalic except for nasal bridge abrasion and some nasal edema, pupils equal and reactive to light, extraocular muscles intact Neck-no lymphadenopathy or thyromegaly, trachea midline Chest-clear to auscultation. No rales, wheezing or rhonchi Cardiac-regular rate and rhythm, normal S1 and S2 Abdomen-normal bowel sounds, no hepatosplenomegaly Extremities-no cyanosis, clubbing, or edema Neuro-cranial nerves II through XII intact, motor and sensory function within normal limits, strength symmetrical, no focal deficits Psych-normal affect, normal mood Results & Data Results & Data Vital Signs (Past 12 Hours) Vital Signs Temp Pulse Pulse Resp BP BP Pulse Ox 03/26/25 13:05 62 12 118/61 95 03/26/25 12:50 68 03/26/25 12:05 37.3 C 77 15 109/62 94 03/26/25 12:05 37.3 C 77 15 109/62 94 O2 Del Method 03/26/25 13:05 Room Air 03/26/25 12:50 03/26/25 12:05 Room Air 03/26/25 12:05 Room Air Laboratory Results 03/26/25 12:20 03/26/25 12:20 Code Status & VTE Plan Code Status Full code PG Care Time/CCT Total # of Minutes Spent Total Time Spent with Patient: Total time spent is greater than 50% in coordination of care (as documented) at patient's floor/unit and/or counseling patient: Coding Level of Care Code 28668 INT INP/OBS CARE 3/75MIN Diagnoses Viral illness B34.9 Weakness R53.1 Hypokalemia E87.6 Type 2 diabetes mellitus E11.9 Hypertension I10
[2025-03-26 15:09] LABS: Appearance Urine Clear (Clear); Bacteria Urine Automated None Seen (None Seen); Cast Urine Automated 0-2 /lpf (0-2); Epithelial Cell Urine Auto 0-2 /hpf (0-2); Glucose Urine UA Negative (Negative); RBC Urine Automated 0-2 /hpf (0-2); WBC Urine Automated 0-5 /hpf (0-5)
[2025-03-26] MEDS ORDERED: DEXTROSE 50% 50 ML SYRINGE IV PRN (18:21)
[2025-03-26] MEDS ORDERED: GLUCOSE 40% GEL 15 GM TUBE PO PRN (18:21)
[2025-03-26] MEDS ORDERED: GLUCOSE 10 TAB/TUBE PO PRN (18:21)
[2025-03-26] MEDS ORDERED: CARBOHYDRATES FOR HYPOGLYCEMIA PO PRN (18:21)
[2025-03-26] MEDS ORDERED: ONDANSETRON INJ 2 MG/ML 2 ML VIAL IV PRN (18:21)
[2025-03-26] MEDS ORDERED: GLUCAGON FOR INJ 1 MG VIAL SQ PRN (18:21)
[2025-03-26] MEDS: ACETAMINOPHEN 325 MG TAB PO PRN (18:32)
[2025-03-26] MEDS: SODIUM CHLORIDE 0.9% 1,000 ML IV SCH (20:11)
[2025-03-26] MEDS: INSULIN ASPART PER UNIT CHARGE SC SCH (20:12)
[2025-03-26] MEDS: CHOLECALCIFEROL 25 MCG (1000 UNITS) TAB PO SCH (21:32)
[2025-03-26] MEDS: TAMSULOSIN HCL 0.4 MG CAP PO SCH (21:32)
[2025-03-26] MEDS: LOSARTAN POTASSIUM 50 MG TAB PO SCH (21:32)
[2025-03-26] MEDS: SIMVASTATIN 20 MG TAB PO SCH (21:33)
[2025-03-26] MEDS: HEPARIN SOD 5,000 UNIT/0.5 ML VIAL SQ SCH (21:35)
[2025-03-27] MEDS: VANCOMYCIN HCL / NSS 1,000 MG/270 ML BAG IV SCH (02:38)
[2025-03-27 06:16] LABS: Hematocrit (blood only) 35.1 % (42.0-52.0); Hemoglobin 11.7 g/dl (14.0-18.0); Immature Granulocytes # (auto) 0.02 K/uL (0.01-0.20); Immature Granulocytes % (auto) 0.4 %; Mean Corpuscular Hemoglobin 31.4 pg (25.0-34.0); Mean Corpuscular Volume 94.1 fL (80.0-100.0); Platelet Count 134 K/uL (130-400); RDW Standard Deviation 46.3 fL (36.4-46.3); Red Blood Count 3.73 M/uL (4.70-6.10); White Blood Count 5.70 K/ul (4.8-10.8)
[2025-03-27 06:42] LABS: Anion Gap 6.0 (3-11); Blood Urea Nitrogen 15.0 mg/dl (6-23); Calcium 9.2 mg/dl (8.6-10.3); Carbon Dioxide 21.0 mmol/L (21-32); Chloride 105.0 mmol/L (98-107); Creatinine Clr Calc Pharmacy 108.1 ml/min; Glucose 80.0 mg/dl (70-99(Fasting)); Potassium 3.3 mmol/L (3.5-5.1); Sodium 132.0 mmol/L (136-145)
[2025-03-27 07:24] LABS: A calco-baum cmplx NotReported Not Detected (NotDetected); Bact fragilis Not Reported Not Detected (NotDetected); Blood Culture Id Panel See PCR Comment (NotDetected); C auris Not Reported Not Detected (NotDetected); Calbicans Not Reported Not Detected (NotDetected); Candida glabrata Not Reported Not Detected (NotDetected); Candida krusei Not Reported Not Detected (NotDetected); Cneoformans/gatti Not Reported Not Detected (NotDetected); Cparapsilosis Not Reported Not Detected (NotDetected); Ctropicalis Not Reported Not Detected (NotDetected); E cloacae compx Not Reported Not Detected (NotDetected); Efaecalis Not Reported Not Detected (NotDetected); Efaecium Not Reported Not Detected (NotDetected); Enterobacterales Not Reported Not Detected (NotDetected); Escherichia coli Not Reported Not Detected (NotDetected); H influenzae Not Reported Not Detected (NotDetected); K aerogenes Not Reported Not Detected (NotDetected); Koxytoca Not Reported Not Detected (NotDetected); Kpneumoniae grp Not Reported Not Detected (NotDetected); Lmonocyt Not Reported Not Detected (NotDetected); N meningitidis Not Reported Not Detected (NotDetected); P aeruginosa Not Reported Not Detected (NotDetected); Proteus spp Not Reported Not Detected (NotDetected); Salmonella spp Not Reported Not Detected (NotDetected); Staph lugdunensis Not Reported Not Detected (NotDetected); Staph spp. Not Reported Not Detected (NotDetected); Staphaureus Not Reported Not Detected (NotDetected); Staphepi Not Reported Not Detected (NotDetected); Stenmaltophilia Not Reported Not Detected (NotDetected); Strep agal(GrpB) Not Reported Not Detected (NotDetected); Strep pneum Not Reported Not Detected (NotDetected); Strep pyog (GrpA) Not Reported Not Detected (NotDetected); Strep spp Not Reported DETECTED (NotDetected)
[2025-03-27 07:28] LABS: Streptococcus spp DETECTED (NotDetected)
[2025-03-27] MEDS: POTASSIUM CHLORIDE 10 MEQ TABCR PO SCH (08:56)
[2025-03-27] MEDS ORDERED: POTASSIUM CHLORIDE 10 MEQ TABCR PO SCH (09:00)
--- NOTE | 2025-03-27 09:48 | Pharmacy Report ---
Pharmacy PK ABX Note - Date of Service March 27, 2025 - Assessment and Plan Assessment 85 year old M receiving vancomycin/ceftriaxone for treatment empiric treatment/? bacteremia vs contamination. Patient admitted with weakness and falls. Pertinent microbiologic data includes: 1/4 blood cultures with GPC in chains, identified as a Strep sp. on BCID2. UA was negative and did not reflex to culture. White count has normalized, afebrile. Initial procalcitonin 1.18. Plan Vancomycin * Loading dose: 2000 mg IV x 1 * Maintenance dose: 1000 mg IV every 12 hours * Regimen is predicted to achieve target AUC/KEVON of 400-600 mg/L.hr * Random level to be ordered if continued >48 hours Pharmacy will continue to follow and will adjust dose/frequency as necessary. Thank you. Pharmacy has transitioned to AUC monitoring for vancomycin. AUC/KEVON is the pre ferred PK/PD target and is associated with decreased risk of nephrotoxicity compared to traditional trough targets.
--- NOTE | 2025-03-27 09:52 | Electrocardiogram Report ---
Test Reason : Blood Pressure : */* mmHG Vent. Rate : 63 BPM Atrial Rate : 63 BPM P-R Int : 174 ms QRS Dur : 136 ms QT Int : 420 ms P-R-T Axes : 30 -13 24 degrees QTcB Int : 429 ms Sinus rhythm with Premature atrial complexes Right bundle branch block Abnormal ECG When compared with ECG of 11-Jun-2021 07:22, Premature atrial complexes are now Present Nonspecific T wave abnormality now evident in Lateral leads Confirmed by Hua Rivera ([id number]) on 03/27/2025 9:51:57 AM Referred By: REFERRED SELF Confirmed By: Hua Rivera
[2025-03-27] MEDS: cefTRIAXone SODIUM 2,000 MG/50 ML BAG IV SCH (13:43)
--- NOTE | 2025-03-27 13:58 | Hospitalist Progress Note ---
Date of Service March 27, 2025 Assessment & Plan (1) Bacteremia: Plan: Gram-positive cocci in chains isolated in the blood culture obtained on admission. No obvious source of infection however. He is currently on Rocephin, day 2. Urine analysis negative for bacteria. No skin lesions or open sores. ID consultation requested. (2) Viral illness: Plan: Suspected on admission with intermittent low-grade fevers, weakness, multiple falls. His symptoms on admission undoubtably are related to the bacteremia rather than a virus. IV fluids have been discontinued. Continue supportive care. OT and PT evaluations will be ordered when appropriate. Urine analysis negative for bacteria. (3) Weakness: Plan: Present on admission. Will obtain OT and PT assessments tomorrow, March 28 (4) Hypokalemia: Plan: Oral potassium replacement up titrated today, March 27. Potassium remains mildly low at 3.3. Serial labs (5) Type 2 diabetes mellitus: Plan: Will discontinue glipizide indefinitely in this age group due to propensity for causing hypoglycemia. ADA diet. Sliding scale coverage as needed. Glucose 80 this morning, March 27 (6) Hypertension: Plan: Stable. Continue current medical management (7) Facial droop: Plan: Left side. Appears to be chronic. No prior history of CVA. 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 Plan To be determined. Infectious disease consultation requested and pending. OT and PT assessments will be ordered tomorrow, March 28. He lives alone Admission and Anticipated Discharge Date Admission Date: March 26, 2025 Subjective Awake and alert. Asymptomatic. However, blood cultures are growing gram- positive cocci in chains. Identification is pending. He remains on intravenous Rocephin, day 2. No bacteria seen in urine analysis. He has no obvious source or dental problems. Uncertain etiology of the positive blood culture. ID consultation requested. Potassium supplementation uptitrated today. Glucose 80 this morning, March 27. Glipizide has been discontinued on admission and probably should remain discontinued in this age group. 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 No history of prior CVA and nothing seen on admission head CT scan. Review of Systems 2 Review of Systems: Constitutionallow-grade fever at home with nausea and weakness. Denies rigors ENTno blurred vision, no double vision, no epistaxis, no sore throat. Nasal bridge abrasion and some nasal edema noted Respiratoryno cough, no wheezing, no shortness of breath Cardiacno palpitations, no chest pain, no syncope Luis Carlos nausea, vomiting, diarrhea, melena, hematochezia GUno urinary retention, no urinary incontinence, no dysuria, no hematuria Musculoskeletalno joint pain, no muscle tenderness Skinno bruising, no rashes, no pruritus Neurono isolated weakness, no paresthesia. Generalized weakness and falls present on admission. Chronic left facial droop Psychno depression, no anxiety Physical Exam 2 Physical Exam: General-alert and oriented x3, no fever, no chills HEENT-head atraumatic and normocephalic except for nasal bridge abrasion and some nasal edema, pupils equal and reactive to light, extraocular muscles intact Neck-no lymphadenopathy or thyromegaly, trachea midline Chest-clear to auscultation. No rales, wheezing or rhonchi Cardiac-regular rate and rhythm, normal S1 and S2 Abdomen-normal bowel sounds, no hepatosplenomegaly Extremities-no cyanosis, clubbing, or edema Neuro-cranial nerves II through XII intact, motor and sensory function within normal limits, strength symmetrical, no focal deficits. Chronic left facial droop Psych-normal affect, normal mood Results & Data Results & Data Vital Signs (Past 12 Hours) Vital Signs Temp Pulse Pulse Resp BP Pulse Ox O2 Del Method 03/27/25 13:52 55 L 03/27/25 11:58 36.9 C 69 18 102/57 L 96 Room Air 03/27/25 08:01 36.8 C 73 18 114/63 92 Room Air 03/27/25 07:36 Room Air 03/27/25 06:58 71 03/27/25 02:39 37.4 C 66 16 132/67 95 Room Air Laboratory Results 03/27/25 05:53 03/27/25 05:53 PG Care Time/CCT Total # of Minutes Spent Total Time Spent with Patient: Total time spent is greater than 50% in coordination of care (as documented) at patient's floor/unit and/or counseling patient: Coding Level of Care Code 85341 SUB INP/OBS CARE 3/50MIN Diagnoses Bacteremia R78.81 Viral illness B34.9 Weakness R53.1 Hypokalemia E87.6 Type 2 diabetes mellitus E11.9 Hypertension I10 Facial droop R29.810
[2025-03-28 06:17] LABS: Hematocrit (blood only) 35.2 % (42.0-52.0); Hemoglobin 12.5 g/dl (14.0-18.0); Immature Granulocytes # (auto) 0.02 K/uL (0.01-0.20); Immature Granulocytes % (auto) 0.3 %; Mean Corpuscular Hemoglobin 32.9 pg (25.0-34.0); Mean Corpuscular Volume 92.6 fL (80.0-100.0); Platelet Count 149 K/uL (130-400); RDW Standard Deviation 46.0 fL (36.4-46.3); Red Blood Count 3.80 M/uL (4.70-6.10); White Blood Count 5.89 K/ul (4.8-10.8)
[2025-03-28 06:34] LABS: Anion Gap 6.0 (3-11); Blood Urea Nitrogen 16.0 mg/dl (6-23); Calcium 9.4 mg/dl (8.6-10.3); Carbon Dioxide 22.0 mmol/L (21-32); Chloride 105.0 mmol/L (98-107); Creatinine Clr Calc Pharmacy 99.7 ml/min; Glucose 105.0 mg/dl (70-99(Fasting)); Potassium 3.8 mmol/L (3.5-5.1); Sodium 133.0 mmol/L (136-145)
--- NOTE | 2025-03-28 07:59 | Hospitalist Progress Note ---
Date of Service March 28, 2025 Assessment & Plan (1) Bacteremia: (2) Atrial fibrillation with RVR: (3) Weakness: (4) Type 2 diabetes mellitus: (5) Hypertension: (6) Facial droop: Plan This patient is an 85-year-old male who presented on 03/26 after sustaining multiple unwitnessed falls at home. #Bacteremia Final BCx grew Streptococcus mitis/oralis Unclear source UA negative CXR negative No skin or open lesions appreciated Skin/soft tissue v. Dental v. Sinus infection ID consult appreciated Vancomycin has been discontinued Continue Rocephin 2000 mg IV q24h Repeat blood cultures ordered, pending TTE ordered, pending #Atrial fibrillation with RVR EKG repeated on 03/28 revealing an undetermined rhythm at 128 bpm; irregular irregular Patient denies prior history of atrial fibrillation Trial of metoprolol tartrate 25 mg p.o. x 1 [id number] risk score: 3 Discussed with patient Will initiate Eliquis 5 mg p.o. twice daily Echocardiogram (as above) TSH WNL on arrival Continuous telemetry monitoring #Bilateral nasal bone fracture Noted on imaging on arrival #Generalized weakness Present on admission PT/OT evaluations appreciated Per PT, okay to return home with family support + HHS upon discharge #T2DM Will discontinue glipizide indefinitely in this age group due to propensity for causing hypoglycemia. ADA diet. Sliding scale coverage as needed. #HTN Stable. Continue current medical management. #Facial droop Left side. Appears to be chronic. No prior history of CVA. 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 Disposition: Continued stay on MedSurg telemetry pending echocardiogram/ID evaluation Admission and Anticipated Discharge Date Admission Date: March 26, 2025 Subjective Mr. Dong reports he is doing much better today when compared to yesterday. He is glad to report that he was able to ambulate with his walker throughout the hallways without feeling lightheaded or dizzy. He is hoping to go home as soon as possible. Daughter at bedside provides additional history. Patient lives alone. Daughter reports that he was originally feverish the day that she found him on the floor. He could not stand on its own. On the phone prior to her arrival, he said "I thought I have the flu". No sick contacts prior to arrival. Patient denies prior history of atrial fibrillation. He reports he has not been on blood thinners in the past, but denies any reasons why he could not be on blood thinners; no history of GI bleeds, or brain bleeds). No PMH of stroke, T2DM, NV, or CHF. ROS: Patient endorses generalized weakness. Patient denies pain anywhere, chest pain, abdominal pain, cough, SOB, pleuritic CP, dysuria, burning with urination, blood in the urine or stool, rashes, or tick bites. Review of Systems Review of Systems: See HPI above Physical Exam Physical Exam: General: no acute distress; daughter at bedside; non-toxic appearing; well- nourished; cooperative; SpO2 92% on RA HEENT: Abrasion appreciated on the bridge of the nose with subsequent edema; no scleral icterus; PERRLA; vision and hearing intact Neck: supple; no lymphadenopathy; trachea midline Skin: No rashes appreciated on the abdomen, flanks, or back; warm, dry without signs of tenting; no cyanosis; no rashes, bruising, lesions, or erythema noted CV: chest wall NTP; RRR; S1/S2 normal; no murmurs/rubs/gallops; pulses intact and symmetric at radial, DP, and PT Lungs: no acute respiratory distress; symmetrical chest wall expansion; clear breath sounds across all lung mc w/o adventitious sounds; no wheezing ABD: Soft, NTP in all 4 quadrants; BS present; no rebound/guarding; no distention MSK: no tics or fasciculations; no edema noted in the LEs b/l, nonerythematous Neuro: A&Ox3; normal mood and affect; fluent speech; no focal deficits; sensa tion grossly intact in the LEs b/l Results & Data Results & Data Vital Signs (Past 12 Hours) Vital Signs Temp Pulse Pulse Resp BP Pulse Ox O2 Del Method 03/28/25 03:37 37.1 C 48 L 16 127/60 96 Room Air 03/27/25 23:26 36.7 C 54 L 12 108/68 95 Room Air 03/27/25 23:14 51 L PG Care Time/CCT Total # of Minutes Spent Total Time Spent with Patient: Total time spent is greater than 50% in coordination of care (as documented) at patient's floor/unit and/or counseling patient: Coding [place] [address] SUB INP/OBS CARE 350MIN Patient Type Established History Comprehensive Exam Comprehensive Medical Decision Making High Complexity Diagnoses Bacteremia R78.81 Atrial fibrillation with RVR I48.91 Weakness R53.1 Type 2 diabetes mellitus E11.9 Hypertension I10 Facial droop R29.810
--- NOTE | 2025-03-28 13:56 | Infectious Disease Consult ---
Date of Consultation March 28, 2025 Assessment & Plan (1) Bacteremia: (2) Elevated procalcitonin: (3) Recurrent falls: Plan This is an 85-year-old male with a past medical history of spinal stenosis, status post spine surgery, right hip arthroplasty, ?L knee arthroplasty who pr esents to the ED on 03/26/2025 with generalized weakness and recurrent falls. In the 48 hours pror to admission he had difficulty getting up and around at home. He fell twice. Initial fall felt like his legs gave out and he landed on his face. He denied loss of consciousness. The second time he fell he landed on his back. On the day of admission he was trying to get up out of a chair when he slid to the ground. On admission he was afebrile and hemodynamically stable. Labs: WBC 11.59--> 5.89, BUN 16, creatinine 0.82, procalcitonin 1.18. Urinalysis without pyuria. Respiratory viral panel negative. Lyme screen negative. Anaplasma and Babesia smear with no evidence of intracytoplasmic neutrophilic inclusions to suggest anaplasmosis or red blood cell inclusions to suggest babesiosis. Blood culture BioFire positive for Streptococcus species. Blood cultures finalized as Streptococcus mitis/oralis in 2/[address] cervical spine shows no fracture. Chest x-ray shows no cardiopulmonary disease. Face CT shows an acute mildly displaced depressed bilateral nasal bone fracture. Nasal contusion. Nasal soft tissue swelling and soft tissue gas. CT head with no acute intracranial findings. He is receiving IV vancomycin and ceftriaxone. Infectious disease consulted for bacteremia. An E consult without video evaluation completed as video/camera is not working today. Microbiology 03/26 blood cultures 2/4 bottles positive Streptococcus mitis/oralis Antibiotics IV vancomycin /6current Ceftriaxone /6current # Streptococcus mitis/oralis bacteremia # Falls # Depressed bilateral nasal bone fracture # Elevate procalcitonin # Spinal hardware in place # Status post right hip arthroplasty #? Status post left knee arthroplasty, Discussion: Streptococcus mitis/oralis bacteremia on admission. Source could be oral. Unable to evaluate the patient's teeth/oral cavity. No documentation of any dental pain or recent dental procedures. Patient also has hardware/prosthetics. Per review of the chart; right hip replacement,t, spinal fusion with hardware in place. Possible L knee arthroplasty ( need to confirm) Nasal fractures likely secondary to fall. Recommendations: Discontinued IV vancomycin Continue ceftriaxone 2 g IV daily which will cover Streptococcus mitis/oralis. Repeat blood cultures ordered Check transthoracic echocardiogram Will need thorough oral/dental evaluation to ensure no signs of active infection. If no source of bacteremia ided, then thorough evaluation of R hip, left knee and spine ( sites of prosthetics/hardware). Recommendations communicated to hospitalist. Thank you for this consult. ID will continue to follow. Selene Hinojosa MD, MPH Infectious Disease [facility] Call [phone] with questions Consultation Information This patient recommendation is based on a telemedicine consult request which was completed asynchronously through chart review and information provided by the primary physician. The patient was not seen or examined today. The evaluation is consultative in nature and all patient care and treatment decisions can either be accepted or rejected by the patient's primary hospital-based treating physician using their own independent medical judgment for their patient. Material Handler Loader contact information: Please call [facility] Call Center . (Phone Number For Physician Use Only) Time Spent Reviewing Chart: 31+ minutes History of Present Illness Reason for Consultation: Bacteremia Requesting Physician: Ruperto Rader Attending Physician: Ruperto Rader History of Present Illness This is an 85-year-old male with a past medical history of spinal stenosis, status post spine surgery, right hip arthroplasty, ? left knee arthroplasty who presents to the ED on 03/26/2025 with generalized weakness and recurrent falls. In the 48 hours pror to admission he had difficulty getting up and around at home. He fell twice. Initial fall felt like his legs gave out and he landed on his face. He denied loss of consciousness. The second time he fell he landed on his back. On the day of admission he was trying to get up out of a chair when he slid to the ground. On admission he was afebrile and hemodynamically stable. Labs: WBC 11.59--> 5.89, BUN 16, creatinine 0.82, procalcitonin 1.18. Urinalysis without pyuria. Respiratory viral panel negative. Lyme screen negative. Anaplasma and Babesia smear with no evidence of intracytoplasmic neutrophilic inclusions to suggest anaplasmosis or red blood cell inclusions to suggest babesiosis. Blood culture BioFire positive for Streptococcus species. Blood cultures finalized as Streptococcus mitis/oralis in 2/[address] cervical spine shows no fracture. Chest x-ray shows no cardiopulmonary disease. Face CT shows an acute mildly displaced depressed bilateral nasal bone fracture. Nasal contusion. Nasal soft tissue swelling and soft tissue gas. CT head with no acute intracranial findings. He is receiving IV vancomycin and ceftriaxone. Infectious disease consulted for bacteremia. An E consult without video evaluation completed as video/camera is not working today. Allergies Allergy/AdvReac Type Severity Reaction Status Date / Time No Known Drug Allergies Allergy Verified 03/26/25 14:45 Home Medications Medication Instructions Recorded Confirmed Type cholecalciferol (vitamin D3) 50 2,000 units PO PM #30 caps 02/25/19 03/26/25 History mcg (2,000 unit) capsule blood sugar diagnostic (GuzuTouch #100 ea 06/01/24 03/15/25 Rx Ultra Test strips) lancets 33 gauge (GuzuTouch Delica #100 ea 06/08/24 03/15/25 Rx Plus Lancet) metformin 500 mg tablet,extended 1,000 mg (2 x 500 mg) PO BID 90 06/22/24 03/26/25 Rx release 24 hr days #360 tabs glimepiride 2 mg tablet 2 mg PO BID #180 tabs 09/14/24 03/26/25 Rx hydrochlorothiazide 12.5 mg tablet 12.5 mg PO PM #90 tabs 09/14/24 03/26/25 Rx tamsulosin 0.4 mg capsule 0.4 mg PO HS #90 caps 09/14/24 03/26/25 Rx acetaminophen 500 mg tablet 1,000 mg PO BID PRN fever 12/17/24 03/26/25 History losartan 50 mg tablet 50 mg PO PM #90 tabs 12/27/24 03/26/25 Rx simvastatin 20 mg tablet 20 mg PO HS #90 tabs 03/22/25 03/26/25 Rx Patient History Medical History Male pelvic pain Scoliosis Snores no apnea dx Surgical History History of lumbosacral spine surgery History of total right hip replacement History of colonoscopy History of tooth extraction History of cataract surgery bilat Hx of laminectomy lumbar Family History Father Bone cancer S/P placement of cardiac pacemaker Myocardial infarction Mother Alzheimer disease Myocardial infarction Denies family history of Ovarian cancer Prostate cancer Breast cancer Colorectal cancer Social History Smoking Status: Never smoker Second Hand Exposure: No; Do You Dip or Chew Tobacco: Yes; Hx Alcohol Use: No Hx Substance Use: No Preferred Language: Hebrew Communication Ability: Effective Visual Impairment: No Limitations Hearing Ability: Normal 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 Required: No Beliefs That Will Affect Care: Protestant marital status: / Current Living Situation: Alone current occupational status: retired Feels Safe at Home: Yes Childhood Exposure to Second-Hand Smoke: Yes Dental Care, Regularly: Yes Physical Activity Frequency: Daily Physical Activity Frequency Comment: Exercise bike 30 minutes each day Seatbelt Use: always Sunscreen Use: No Assistive Devices: Cane and Walker Results & Data Vital Signs (Past 12 Hours) Vital Signs Temp Pulse Pulse Resp BP Pulse Ox O2 Del Method 03/28/25 11:58 94 Room Air 03/28/25 11:26 36.8 C 62 20 97/57 L 90 Room Air 03/28/25 10:32 51 L 03/28/25 08:25 36.3 C L 41 L 20 92/51 L 96 Room Air 03/28/25 07:40 65 03/28/25 07:40 Room Air 03/28/25 03:37 37.1 C 48 L 16 127/60 96 Room Air Laboratory Results Laboratory Results - last 48 hr 03/26/25 03/26/25 03/26/25 12:59 14:43 19:47 WBC RBC Hgb Hct MCV MCH MCHC RDW Std Deviation RDW Coeff of Sherita Plt Count MPV Immature Gran % (Auto) Neut % (Auto) Lymph % (Auto) [place] % (Auto) Eos % (Auto) Baso % (Auto) Neut # (Auto) Lymph # (Auto) [place] # (Auto) Eos # (Auto) Baso # (Auto) Immature Gran # (Auto) Sodium Potassium Chloride Carbon Dioxide Anion Gap BUN Creatinine Est Cr Clr Drug Dosing eGFR BUN/Creatinine Ratio Glucose POC Glucose 82 Calcium Urine Color Dark Yellow Urine Appearance Clear Urine pH 5.5 Ur Specific [place] 1.027 Urine Protein 1+ H Urine Glucose (UA) Negative Urine Ketones Trace H Urine Blood Negative Urine Nitrite Negative Urine Bilirubin Negative Urine Urobilinogen Negative Ur Leukocyte Esterase Negative Urine WBC (Auto) 0-5 Urine RBC (Auto) 0-2 U Hyaline Cast (Auto) 0-2 U Epithel Cells (Auto) 0-2 Urine Bacteria (Auto) None Seen Urine Comment Streptococcus sp PCR DETECTED A Bld Cult ID Panel PCR See PCR Comment 03/26/25 03/27/25 03/27/25 21:37 05:53 07:58 WBC 5.70 RBC 3.73 L Hgb 11.7 L Hct 35.1 L MCV 94.1 MCH 31.4 MCHC 33.3 RDW Std Deviation 46.3 RDW Coeff of Sherita 13.5 Plt Count 134 MPV 9.7 Immature Gran % (Auto) 0.4 Neut % (Auto) 86.7 Lymph % (Auto) 6.0 [place] % (Auto) 6.3 Eos % (Auto) 0.2 Baso % (Auto) 0.4 Neut # (Auto) 4.95 Lymph # (Auto) 0.34 L [place] # (Auto) 0.36 Eos # (Auto) 0.01 Baso # (Auto) 0.02 Immature Gran # (Auto) 0.02 Sodium 132 L Potassium 3.3 L Chloride 105 Carbon Dioxide 21 Anion Gap 6 BUN 15 Creatinine 0.59 L Est Cr Clr Drug Dosing 108.1 eGFR 96.27 BUN/Creatinine Ratio 25.4 H Glucose 80 POC Glucose 108 H 91 Calcium 9.2 Urine Color Urine Appearance Urine pH Ur Specific [place] Urine Protein Urine Glucose (UA) Urine Ketones Urine Blood Urine Nitrite Urine Bilirubin Urine Urobilinogen Ur Leukocyte Esterase Urine WBC (Auto) Urine RBC (Auto) U Hyaline Cast (Auto) U Epithel Cells (Auto) Urine Bacteria (Auto) Urine Comment Streptococcus sp PCR Bld Cult ID Panel PCR 03/27/25 03/27/25 03/27/25 11:54 16:52 20:36 WBC RBC Hgb Hct MCV MCH MCHC RDW Std Deviation RDW Coeff of Sherita Plt Count MPV Immature Gran % (Auto) Neut % (Auto) Lymph % (Auto) [place] % (Auto) Eos % (Auto) Baso % (Auto) Neut # (Auto) Lymph # (Auto) [place] # (Auto) Eos # (Auto) Baso # (Auto) Immature Gran # (Auto) Sodium Potassium Chloride Carbon Dioxide Anion Gap BUN Creatinine Est Cr Clr Drug Dosing eGFR BUN/Creatinine Ratio Glucose POC Glucose 130 H 117 H 90 Calcium Urine Color Urine Appearance Urine pH Ur Specific [place] Urine Protein Urine Glucose (UA) Urine Ketones Urine Blood Urine Nitrite Urine Bilirubin Urine Urobilinogen Ur Leukocyte Esterase Urine WBC (Auto) Urine RBC (Auto) U Hyaline Cast (Auto) U Epithel Cells (Auto) Urine Bacteria (Auto) Urine Comment Streptococcus sp PCR Bld Cult ID Panel PCR 03/28/25 03/28/25 03/28/25 05:37 08:02 11:58 WBC 5.89 RBC 3.80 L Hgb 12.5 L Hct 35.2 L MCV 92.6 MCH 32.9 MCHC 35.5 RDW Std Deviation 46.0 RDW Coeff of Sherita 13.5 Plt Count 149 MPV 10.2 Immature Gran % (Auto) 0.3 Neut % (Auto) 72.9 Lymph % (Auto) 14.6 [place] % (Auto) 9.5 Eos % (Auto) 2.2 Baso % (Auto) 0.5 Neut # (Auto) 4.29 Lymph # (Auto) 0.86 L [place] # (Auto) 0.56 Eos # (Auto) 0.13 Baso # (Auto) 0.03 Immature Gran # (Auto) 0.02 Sodium 133 L Potassium 3.8 Chloride 105 Carbon Dioxide 22 Anion Gap 6 BUN 16 Creatinine 0.64 Est Cr Clr Drug Dosing 99.7 eGFR 93.93 BUN/Creatinine Ratio 25.0 H Glucose 105 H POC Glucose 105 H 146 H Calcium 9.4 Urine Color Urine Appearance Urine pH Ur Specific [place] Urine Protein Urine Glucose (UA) Urine Ketones Urine Blood Urine Nitrite Urine Bilirubin Urine Urobilinogen Ur Leukocyte Esterase Urine WBC (Auto) Urine RBC (Auto) U Hyaline Cast (Auto) U Epithel Cells (Auto) Urine Bacteria (Auto) Urine Comment Streptococcus sp PCR Bld Cult ID Panel PCR Microbiology 03/26/25 12:20 Blood Aerobic Blood Culture - Preliminary No growth in Aerobic bottle after 48 hours. 03/26/25 12:20 Blood Anaerobic Blood Culture - Preliminary No growth in Anaerobic bottle after 48 hours. 03/26/25 12:59 Blood Aerobic Blood Culture - Final Streptococcus mitis/oralis grp 03/26/25 12:59 Blood Anaerobic Blood Culture - Final Streptococcus mitis/oralis grp Diagnostic Findings Cervical Spine CT 03/26/25 12:14 CT SCAN OF THE CERVICAL SPINE CLINICAL HISTORY: Fall. COMPARISON STUDY: None. TECHNIQUE: CT scan of the cervical spine is performed from the skull base to the upper thoracic spine. Images are reviewed in the axial, sagittal, and coronal planes. IV contrast was not administered for this examination. A dose lowering technique was utilized adhering to the principles of ALARA. FINDINGS: Slight loss of height of the superior endplate of T1 is likely chronic. No acute cervical spine fractures are present. Facet joints are intact. There is moderate to severe multilevel facet arthrosis and degenerative disc disease within the cervical spine. There is no prevertebral edema. IMPRESSION: No acute cervical spine fracture or subluxation. ACT 112: Negative or not required by law. Electronically signed by: Jb Jackson M.D. 03/26/2025 1:04 PM Chest X-Ray 03/26/25 12:14 XR chest 1V portable CLINICAL HISTORY: weakness COMPARISON STUDY: Chest radiograph June 11, 2021. FINDINGS: There is mild elevation of the right hemidiaphragm. Lungs are clear. There is no pneumothorax or pleural effusion. Cardiac size is normal. Mediastinal contours are normal. There is no evidence for pulmonary edema. IMPRESSION: No acute cardiopulmonary findings. ACT 112: Negative or not required by law. Electronically signed by: Jb Jackson M.D. 03/26/2025 1:[address] 03/26/25 12:[address] WITHOUT CONTRAST CLINICAL HISTORY: nasal pain s/p fall COMPARISON STUDY: None. TECHNIQUE: A maxillofacial CT was performed without IV contrast. Coronal and sagittal reformats were viewed. Automated exposure control was utilized for the study. A dose lowering technique was utilized adhering to the principles of ALARA. FINDINGS: Alignment of the temporomandibular joints is anatomic. No mandibular fracture is present. There are acute mildly displaced depressed anterior b ilateral nasal bone fractures. Nasal contusion is noted. There is soft tissue gas within the nose, right preseptal soft tissues and anterior to the frontal sinuses. Orbital floors are intact. Globes are intact. There is no retrobulbar hematoma. There is mild sinus mucosal thickening. There is no skull base fracture. IMPRESSION: 1. Acute mildly displaced depressed bilateral nasal bone fractures. 2. Nasal soft tissue swelling and soft tissue gas, as described above. ACT 112: Negative or not required by law. Electronically signed by: Jb Jackson M.D. 03/26/2025 1:[address] 03/26/25 12:14 CT SCAN OF THE BRAIN WITHOUT IV CONTRAST CLINICAL HISTORY: Fall. COMPARISON STUDY: None. TECHNIQUE: Unenhanced axial CT scan of the brain was performed from the vertex to the skull base. A dose lowering technique was utilized adhering to the principles of ALARA. FINDINGS: No acute intracranial hemorrhage, midline shift or mass effect is present. Ventricular system is unremarkable. Basal cisterns are patent. There are no extra-axial collections. White matter hypodensity suggests small vessel disease. There are no calvarial fractures. There are acute mildly displaced depressed bilateral nasal bone fractures. Associated soft tissue gas is present, overlying the nose and frontal sinuses as well as the right preseptal soft tissues. IMPRESSION: 1. No acute intracranial findings. 2. No calvarial fractures. 3. Acute mildly displaced depressed bilateral nasal bone fractures. Associated nasal contusion and soft tissue gas, as described above. ACT 112: Negative or not required by law. Electronically signed by: Jb Jackson M.D. 03/26/2025 12:58 PM Medications Administered Home Medications Medication Instructions Recorded Confirmed Last Taken cholecalciferol (vitamin D3) 50 2,000 units PO PM #30 caps 02/25/19 03/26/25 03/25/25 mcg (2,000 unit) capsule blood sugar diagnostic (OneTouch #100 ea 06/01/24 03/15/25 Unknown Ultra Test strips) lancets 33 gauge (OneTouch Delica #100 ea 06/08/24 03/15/25 Unknown Plus Lancet) metformin 500 mg tablet,extended 1,000 mg (2 x 500 mg) PO BID 90 06/22/24 03/26/25 03/25/25 release 24 hr days #360 tabs glimepiride 2 mg tablet 2 mg PO BID #180 tabs 09/14/24 03/26/25 03/25/25 hydrochlorothiazide 12.5 mg tablet 12.5 mg PO PM #90 tabs 09/14/24 03/26/25 03/25/25 tamsulosin 0.4 mg capsule 0.4 mg PO HS #90 caps 09/14/24 03/26/25 03/25/25 acetaminophen 500 mg tablet 1,000 mg PO BID PRN fever 12/17/24 03/26/25 03/25/25 losartan 50 mg tablet 50 mg PO PM #90 tabs 12/27/24 03/26/25 03/25/25 simvastatin 20 mg tablet 20 mg PO HS #90 tabs 03/22/25 03/26/25 03/25/25 Active Medications Generic Name Dose Route Start Last Admin Trade Name Yaniv PRN Reason Stop Dose Admin Acetaminophen 650 mg 03/26/25 18:21 03/26/25 18:32 Acetaminophen 325 Mg Tab PO 04/25/25 18:20 650 mg Q6H PRN Administration Fever or headache Heparin Sodium (Porcine) 5,000 units 03/26/25 21:00 03/28/25 07:49 Heparin Sod 5,000 Unit/0.5 Ml Vial SQ 04/25/25 20:59 5,000 units Q12 ABHAY Administration Ceftriaxone Sodium 2,000 mg in 50 mls @ 100 mls/hr 03/27/25 14:00 03/28/25 13:27 Rocephin IV 03/29/25 13:59 Infused Q24H ABHAY Infusion Vancomycin HCl 1,000 mg in 270 mls @ 200 mls/hr 03/27/25 03:00 03/28/25 05:15 Vancomycin Hcl / Nss IV 03/29/25 02:59 Infused Q12H ABHAY Infusion Insulin Aspart 0 units 03/26/25 18:30 03/28/25 12:54 Insulin Aspart Per Unit Charge SC 04/25/25 18:29 3 units ACHS ABHAY Administration Losartan Potassium 50 mg 03/26/25 21:00 03/27/25 21:01 Losartan Potassium 50 Mg Tab PO 04/25/25 20:59 50 mg PM ABHAY Administration Metformin HCl 1,000 mg 03/26/25 21:00 03/28/25 07:51 Metformin Hcl Er 500 Mg Tabcr PO 04/25/25 20:59 1,000 mg BID ABHAY Administration Potassium Chloride 20 meq 03/27/25 09:00 03/28/25 07:57 Potassium Chloride 10 Meq Tabcr PO 04/26/25 08:59 20 meq DAILY ABHAY Administration Simvastatin 20 mg 03/26/25 21:00 03/27/25 21:01 Simvastatin 20 Mg Tab PO 04/25/25 20:59 20 mg HS ABHAY Administration Tamsulosin HCl 0.4 mg 03/26/25 21:00 03/27/25 21:00 Tamsulosin Hcl 0.4 Mg Cap PO 04/25/25 20:59 0.4 mg HS ABHAY Administration Vitamin D 50 mcg 03/26/25 21:00 03/27/25 21:01 Cholecalciferol 25 Mcg (1000 Units) Tab PO 04/25/25 20:59 50 mcg PM ABHAY Administration
[2025-03-28] MEDS: METOPROLOL TARTRATE 25 MG TAB PO STA (16:34)
[2025-03-28] MEDS: MAGNESIUM SULFATE / D5W 1 GM/100 ML BAG IV SCH (20:08)
[2025-03-28] MEDS: APIXABAN 5 MG TABLET PO SCH (20:58)
[2025-03-29 07:15] LABS: Hematocrit (blood only) 33.5 % (42.0-52.0); Hemoglobin 11.9 g/dl (14.0-18.0); Immature Granulocytes # (auto) 0.01 K/uL (0.01-0.20); Immature Granulocytes % (auto) 0.2 %; Mean Corpuscular Hemoglobin 32.5 pg (25.0-34.0); Mean Corpuscular Volume 91.5 fL (80.0-100.0); Platelet Count 151 K/uL (130-400); RDW Standard Deviation 45.4 fL (36.4-46.3); Red Blood Count 3.66 M/uL (4.70-6.10); White Blood Count 4.81 K/ul (4.8-10.8)
[2025-03-29 08:04] LABS: Anion Gap 5.0 (3-11); Blood Urea Nitrogen 15.0 mg/dl (6-23); Calcium 9.4 mg/dl (8.6-10.3); Carbon Dioxide 23.0 mmol/L (21-32); Chloride 106.0 mmol/L (98-107); Creatinine Clr Calc Pharmacy 106.3 ml/min; Glucose 112.0 mg/dl (70-99(Fasting)); Potassium 4.0 mmol/L (3.5-5.1); Sodium 134.0 mmol/L (136-145)
--- NOTE | 2025-03-29 09:02 | XCELERA ---
[id number]
--- NOTE | 2025-03-29 09:42 | Electrocardiogram Report ---
Test Reason : Blood Pressure : */* mmHG Vent. Rate : 128 BPM Atrial Rate : 119 BPM P-R Int : * ms QRS Dur : 124 ms QT Int : 336 ms P-R-T Axes : * 1 6 degrees QTcB Int : 490 ms Atrial fibrillation with rapid ventricular response Right bundle branch block Abnormal ECG When compared with ECG of 26-Mar-2025 12:49, ST now depressed in Anterior leads T wave inversion now evident in Anterior leads Confirmed by Hua Rivera ([id number]) on 03/29/2025 9:42:03 AM Referred By: REFERRED SELF Confirmed By: Hua Rivera
--- NOTE | 2025-03-29 13:39 | Hospitalist Progress Note ---
Date of Service March 29, 2025 Assessment & Plan (1) Bacteremia: (2) Atrial fibrillation with RVR: (3) Weakness: (4) Type 2 diabetes mellitus: (5) Hypertension: (6) Facial droop: Plan This patient is an 85-year-old male who presented on 03/26 after sustaining multiple unwitnessed falls at home. Patient lives alone. Prior to these falls, patient had been on the phone with his daughter saying that he felt like he "had the flu". Daughter arrived at his house and found him on the floor. He was febrile at the time. #Bacteremia 03/26: Final BCx grew Streptococcus mitis/oralis in 2/4 blood cultures Unclear source UA negative CXR negative Respiratory BioFire negative No skin or open lesions appreciated Mouth examined, and while he does exhibit poor dentition & is a tobacco chewer, there are no open ulcers, erythema, or signs of clear infection in the mouth Skin/soft tissue v. Sinus infection v. Infected prosthesis ID consult appreciated While only 2/4 positive BCx, unlikely to be a contaminant given strep mitis If no source is identified, patient will require 2 weeks of IV ceftriaxone P.o. linezolid x 2 weeks might also be an option (platelets okay at 151; no SSRIs), however this would be suboptimal if there is concern for deep infection Continue Rocephin 2000 mg IV q24h for strep coverage Repeat blood cultures drawn on 03/28 (still NGTD on 03/29) Echocardiogram revealed LVEF at 60 to 65%; no wall motion abnormalities identif ied; no valvular vegetations identified #Atrial fibrillation with RVR EKG repeated on 03/28 revealing an undetermined rhythm at 128 bpm; irregular irregular Patient denies prior history of atrial fibrillation Trial of metoprolol tartrate 25 mg p.o. x 1 Overnight, patient also required magnesium to decrease his rate [id number] risk score: 3 Discussed with patient Initiated Eliquis 5 mg p.o. twice daily while in the hospital Echocardiogram (as above) TSH WNL on arrival Continuous telemetry monitoring A.m. magnesium #Bilateral nasal bone fracture Secondary to fall; noted on imaging on arrival #Generalized weakness Present on admission PT/OT evaluations appreciated Per PT, okay to return home with family support + HHS upon discharge #T2DM Will discontinue glipizide indefinitely in this age group due to propensity for causing hypoglycemia. ADA diet. Sliding scale coverage as needed. #HTN Stable. Continue current medical management. #Facial droop Left side. Appears to be chronic. No prior history of CVA. 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 Disposition: Continued stay on MedSurg telemetry pending results of repeat blood culture (drawn on 03/28) Updated patient's daughter at bedside on 03/28 and 03/29. Daughter appreciative of conversations. Daughter also requesting help with travel insurance, as she and her had a 2-week trip planned for [place] upcoming this week, but given she is her father's primary pet caretaker/medical POA, this trip will need to be canceled. Spoke with Dr. Rader; will offer assistance / support where possible. Admission and Anticipated Discharge Date Admission Date: March 26, 2025 Subjective Mr. Dong is happy to report that he is feeling well. He slept well last night, and denies any symptoms at this time. Patient reports he does not feel lightheaded when he gets up to use the bathroom. He is eating and drinking well. His only complaint is back pain, but he reports that this is not new. He reports his pain is chronic and feels similar to how his back pain has always been in the past. Patient is a current everyday tobacco chewer. He has been chewing tobacco since 1981. He denies tobacco cigarette smoking. Patient goes to the dentist every 6 months for a cleaning and checkup; last dental appointment was 4 to 5 months ago. ROS: Patient denies fever, chills, night sweats, dental pain, chest pain, chest palpitations in the setting of new A-fib, SOB, pleuritic CP, cough, abdominal pain, N/V/D, changes in urinary or bowel habits, pain in the knees or in the site of his prostheses, or changes in his chronic back pain. Review of Systems Review of Systems: See HPI above Physical Exam Physical Exam: General: no acute distress; daughter at bedside; non-toxic appearing; well- nourished; cooperative; SpO2 97% on RA HEENT: Abrasion appreciated on the bridge of the nose with subsequent edema; no scleral icterus; PERRLA; vision and hearing intact Mouth: Poor dentition; no dental ulcers, erythema, or signs of swelling/infection appreciated Neck: supple; no lymphadenopathy; trachea midline Skin: No rashes appreciated on the abdomen, flanks, or back; warm, dry without signs of tenting; no cyanosis; no rashes, bruising, lesions, or erythema noted CV: chest wall NTP; irregularly irregular rhythm around 80 bpm; pulses intact and symmetric at radial, DP, and PT Lungs: no acute respiratory distress; symmetrical chest wall expansion; clear breath sounds across all lung mc w/o adventitious sounds; no wheezing ABD: Soft, NTP in all 4 quadrants; BS present; no rebound/guarding; no distention MSK: no tics or fasciculations; no edema noted in the LEs b/l, nonerythematous; 5/5 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 assurance qa 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 strength bilaterally Neuro: A&Ox3; normal mood and affect; fluent speech; sensation grossly intact symmetric in the upper and lower extremities bilaterally Results & Data Results & Data Vital Signs (Past 12 Hours) Vital Signs Temp Pulse Resp BP Pulse Ox O2 Del Method 03/29/25 11:27 36.4 C L 51 L 20 102/62 97 Room Air 03/29/25 08:11 36.3 C L 83 20 113/62 98 Room Air 03/29/25 03:44 36.5 C 55 L 18 113/53 L 93 Room Air 03/29/25 02:12 Room Air PG Care Time/CCT Total # of Minutes Spent Total Time Spent with Patient: Total time spent is greater than 50% in coordination of care (as documented) at patient's floor/unit and/or counseling patient: Coding [place] [address] SUB INP/OBS CARE 3/50MIN Patient Type Established History Comprehensive Exam Comprehensive Medical Decision Making High Complexity Diagnoses Bacteremia R78.81 Atrial fibrillation with RVR I48.91 Weakness R53.1 Type 2 diabetes mellitus E11.9 Hypertension I10 Facial droop R29.810
--- NOTE | 2025-03-29 14:40 | Electrocardiogram Report ---
Test Reason : Blood Pressure : */* mmHG Vent. Rate : 138 BPM Atrial Rate : * BPM P-R Int : * ms QRS Dur : 118 ms QT Int : 310 ms P-R-T Axes : * 36 17 degrees QTcB Int : 469 ms Atrial fibrillation with rapid ventricular response Low voltage QRS Incomplete right bundle branch block Abnormal ECG When compared with ECG of 28-Mar-2025 16:25, Previous ECG has undetermined rhythm, needs review ST no longer depressed in Anterior leads Confirmed by Hua Rivera ([id number]) on 03/29/2025 2:39:45 PM Referred By: REFERRED SELF Confirmed By: Hua Rivera
--- NOTE | 2025-03-29 14:57 | Infectious Disease Progress Nt ---
Date of Service March 29, 2025 Assessment & Plan (1) Bacteremia: (2) Elevated procalcitonin: (3) Recurrent falls: Plan This is an 85-year-old male with a past medical history of spinal stenosis, status post spine surgery, right hip arthroplasty, ?L knee arthroplasty who p resents to the ED on 03/26/2025 with generalized weakness and recurrent falls. In the 48 hours pror to admission he had difficulty getting up and around at home. He fell twice. Initial fall felt like his legs gave out and he landed on his face. He denied loss of consciousness. The second time he fell he landed on his back. On the day of admission he was trying to get up out of a chair when he slid to the ground. On admission he was afebrile and hemodynamically stable. Labs: WBC 11.59--> 5.89, BUN 16, creatinine 0.82, procalcitonin 1.18. Urinalysis without pyuria. Respiratory viral panel negative. Lyme screen negative. Anaplasma and Babesia smear with no evidence of intracytoplasmic neutrophilic inclusions to suggest anaplasmosis or red blood cell inclusions to suggest babesiosis. Blood culture BioFire positive for Streptococcus species. Blood cultures finalized as Streptococcus mitis/oralis in 2/[address] cervical spine shows no fracture. Chest x-ray shows no cardiopulmonary disease. Face CT shows an acute mildly displaced depressed bilateral nasal bone fracture. Nasal contusion. Nasal soft tissue swelling and soft tissue gas. CT head with no acute intracranial findings. He is receiving IV vancomycin and ceftriaxone. Infectious disease consulted for bacteremia. An E consult without video evaluation completed as video/camera is not working ( 03/28 +03/29) Microbiology 03/26 blood cultures 2/4 bottles positive Streptococcus mitis/oralis 03/28 blood culture in process Antibiotics IV vancomycin Ceftriaxone urrent # Streptococcus mitis/oralis bacteremia # Falls # Depressed bilateral nasal bone fracture # Elevate procalcitonin # Spinal hardware in place # Status post right hip arthroplasty #? Status post left knee arthroplasty, Discussion: Streptococcus mitis/oralis bacteremia on admission. Source could be oral. Unable to evaluate the patient's teeth/oral cavity. No documentation of any dental pain or recent dental procedures. Patient also has hardware/prosthetics. Per review of the chart; right hip replacement,t, spinal fusion with hardware in place. Possible L knee arthroplasty ( need to confirm). Nasal fractures likely secondary to fall. 03/29- TTE reviewed and w/o valve vegetations. Repeat Bcx in process. Per discussion with team . Poor dentition , h/o tobacco chewing but no obvious s/o acute infection or ulcers. Last dental visit 4-5 mos ago. No hip or knee pain or abnormality on exam. He has chronic back pain with no acute component. Per report pt is pushing to go home. Recommendations: Continue ceftriaxone 2 g IV daily which will cover Streptococcus mitis/oralis. Follow up repeat blood cultures fro 03/28 If no source of bacteremia identified, remains HDS and no new acute changes to hip, knee, or spine, then plan for 2 weeks of abx from sterile Bcx ( 03/28- 04/11)). Since plts wnl and no SSRI, can consider dc on linezolid 600mg po bid instead of completing txt with Ceftriaxone. Recommendations communicated to PA. . ID will continue to follow. Selene Hinojosa MD, MPH Infectious Disease [facility], ID Division Call [phone] with questions Admission and Anticipated Discharge Date Admission Date: March 26, 2025 Subjective This patient recommendation is based on a telemedicine consult request which was completed asynchronously through chart review and information provided by the primary physician. The patient was not seen or examined today. The evaluation is consultative in nature and all patient care and treatment decisions can either be accepted or rejected by the patient's primary hospital-based treating physician using their own independent medical judgment for their patient. Time Spent Reviewing Chart: 21 - 30 minutes Econsult progress note completed as video cart down Afebrile Repeat bcx NGTD TTE without vegatations Results & Data Vital Signs (Past 12 Hours) Vital Signs Temp Pulse Resp BP Pulse Ox O2 Del Method 03/29/25 11:27 36.4 C L 51 L 20 102/62 97 Room Air 03/29/25 08:11 36.3 C L 83 20 113/62 98 Room Air 03/29/25 03:44 36.5 C 55 L 18 113/53 L 93 Room Air Laboratory Results Laboratory Results - last 48 hr 03/27/25 03/27/25 03/28/25 16:52 20:36 05:37 WBC 5.89 RBC 3.80 L Hgb 12.5 L Hct 35.2 L MCV 92.6 MCH 32.9 MCHC 35.5 RDW Std Deviation 46.0 RDW Coeff of Sherita 13.5 Plt Count 149 MPV 10.2 Immature Gran % (Auto) 0.3 Neut % (Auto) 72.9 Lymph % (Auto) 14.6 Garden % (Auto) 9.5 Eos % (Auto) 2.2 Baso % (Auto) 0.5 Neut # (Auto) 4.29 Lymph # (Auto) 0.86 L Garden # (Auto) 0.56 Eos # (Auto) 0.13 Baso # (Auto) 0.03 Immature Gran # (Auto) 0.02 Sodium 133 L Potassium 3.8 Chloride 105 Carbon Dioxide 22 Anion Gap 6 BUN 16 Creatinine 0.64 Est Cr Clr Drug Dosing 99.7 eGFR 93.93 BUN/Creatinine Ratio 25.0 H Glucose 105 H POC Glucose 117 H 90 Calcium 9.4 03/28/25 03/28/25 03/28/25 08:02 11:58 16:55 WBC RBC Hgb Hct MCV MCH MCHC RDW Std Deviation RDW Coeff of Sherita Plt Count MPV Immature Gran % (Auto) Neut % (Auto) Lymph % (Auto) Garden % (Auto) Eos % (Auto) Baso % (Auto) Neut # (Auto) Lymph # (Auto) Garden # (Auto) Eos # (Auto) Baso # (Auto) Immature Gran # (Auto) Sodium Potassium Chloride Carbon Dioxide Anion Gap BUN Creatinine Est Cr Clr Drug Dosing eGFR BUN/Creatinine Ratio Glucose POC Glucose 105 H 146 H 102 H Calcium 03/28/25 03/29/25 03/29/25 20:19 06:37 07:35 WBC 4.81 RBC 3.66 L Hgb 11.9 L Hct 33.5 L MCV 91.5 MCH 32.5 MCHC 35.5 RDW Std Deviation 45.4 RDW Coeff of Sherita 13.3 Plt Count 151 MPV 9.9 Immature Gran % (Auto) 0.2 Neut % (Auto) 56.1 Lymph % (Auto) 26.0 Garden % (Auto) 12.9 Eos % (Auto) 4.2 Baso % (Auto) 0.6 Neut # (Auto) 2.70 Lymph # (Auto) 1.25 Garden # (Auto) 0.62 H Eos # (Auto) 0.20 Baso # (Auto) 0.03 Immature Gran # (Auto) 0.01 Sodium 134 L Potassium 4.0 Chloride 106 Carbon Dioxide 23 Anion Gap 5 BUN 15 Creatinine 0.60 Est Cr Clr Drug Dosing 106.3 eGFR 95.78 BUN/Creatinine Ratio 25.0 H Glucose 112 H POC Glucose 76 117 H Calcium 9.4 03/29/25 11:46 WBC RBC Hgb Hct MCV MCH MCHC RDW Std Deviation RDW Coeff of Sherita Plt Count MPV Immature Gran % (Auto) Neut % (Auto) Lymph % (Auto) Garden % (Auto) Eos % (Auto) Baso % (Auto) Neut # (Auto) Lymph # (Auto) Garden # (Auto) Eos # (Auto) Baso # (Auto) Immature Gran # (Auto) Sodium Potassium Chloride Carbon Dioxide Anion Gap BUN Creatinine Est Cr Clr Drug Dosing eGFR BUN/Creatinine Ratio Glucose POC Glucose 155 H Calcium Microbiology 03/26/25 12:20 Blood Aerobic Blood Culture - Preliminary No growth in Aerobic bottle after 48 hours. 03/26/25 12:20 Blood Anaerobic Blood Culture - Preliminary No growth in Anaerobic bottle after 48 hours. 03/26/25 12:59 Blood Aerobic Blood Culture - Final Streptococcus mitis/oralis grp 03/26/25 12:59 Blood Anaerobic Blood Culture - Final Streptococcus mitis/oralis grp Medications Administered Home Medications Medication Instructions Recorded Confirmed Last Taken cholecalciferol (vitamin D3) 50 2,000 units PO PM #30 caps 02/25/19 03/26/25 03/25/25 mcg (2,000 unit) capsule blood sugar diagnostic (enercastTouch #100 ea 06/01/24 03/15/25 Unknown Ultra Test strips) lancets 33 gauge (enercastTouch Delica #100 ea 06/08/24 03/15/25 Unknown Plus Lancet) metformin 500 mg tablet,extended 1,000 mg (2 x 500 mg) PO BID 90 06/22/24 03/26/25 03/25/25 release 24 hr days #360 tabs glimepiride 2 mg tablet 2 mg PO BID #180 tabs 09/14/24 03/26/25 03/25/25 hydrochlorothiazide 12.5 mg tablet 12.5 mg PO PM #90 tabs 09/14/24 03/26/25 03/25/25 tamsulosin 0.4 mg capsule 0.4 mg PO HS #90 caps 09/14/24 03/26/25 03/25/25 acetaminophen 500 mg tablet 1,000 mg PO BID PRN fever 12/17/24 03/26/25 03/25/25 losartan 50 mg tablet 50 mg PO PM #90 tabs 12/27/24 03/26/25 03/25/25 simvastatin 20 mg tablet 20 mg PO HS #90 tabs 03/22/25 03/26/25 03/25/25 Active Medications Generic Name Dose Route Start Last Admin Trade Name Pieroq PRN Reason Stop Dose Admin Acetaminophen 650 mg 03/26/25 18:21 03/29/25 01:51 Acetaminophen 325 Mg Tab PO 04/25/25 18:20 650 mg Q6H PRN Administration Fever or headache Apixaban 5 mg 03/28/25 21:00 03/29/25 08:57 Apixaban 5 Mg Tablet PO 04/27/25 20:59 5 mg BID ABHAY Administration Insulin Aspart 0 units 03/26/25 18:30 03/29/25 13:29 Insulin Aspart Per Unit Charge SC 04/25/25 18:29 4 units ACHS ABHAY Administration Losartan Potassium 50 mg 03/26/25 21:00 03/28/25 20:57 Losartan Potassium 50 Mg Tab PO 04/25/25 20:59 50 mg PM ABHAY Administration Metformin HCl 1,000 mg 03/26/25 21:00 03/29/25 08:58 Metformin Hcl Er 500 Mg Tabcr PO 04/25/25 20:59 1,000 mg BID ABHAY Administration Potassium Chloride 20 meq 03/27/25 09:00 03/29/25 09:06 Potassium Chloride 10 Meq Tabcr PO 04/26/25 08:59 20 meq DAILY ABHAY Administration Simvastatin 20 mg 03/26/25 21:00 03/28/25 20:58 Simvastatin 20 Mg Tab PO 04/25/25 20:59 20 mg HS ABHAY Administration Tamsulosin HCl 0.4 mg 03/26/25 21:00 03/28/25 20:57 Tamsulosin Hcl 0.4 Mg Cap PO 04/25/25 20:59 0.4 mg HS ABHAY Administration Vitamin D 50 mcg 03/26/25 21:00 03/28/25 20:57 Cholecalciferol 25 Mcg (1000 Units) Tab PO 04/25/25 20:59 50 mcg PM ABHAY Administration
[2025-03-30 07:24] VITALS: RESP 20; O2SAT 96
[2025-03-30 08:10] LABS: Hematocrit (blood only) 34.1 % (42.0-52.0); Hemoglobin 12.4 g/dl (14.0-18.0); Mean Corpuscular Hemoglobin 33.3 pg (25.0-34.0); Mean Corpuscular Volume 91.7 fL (80.0-100.0); Platelet Count 178 K/uL (130-400); RDW Standard Deviation 45.0 fL (36.4-46.3); Red Blood Count 3.72 M/uL (4.70-6.10); White Blood Count 5.41 K/ul (4.8-10.8)
[2025-03-30 08:41] LABS: Anion Gap 6.0 (3-11); Blood Urea Nitrogen 15.0 mg/dl (6-23); Calcium 9.6 mg/dl (8.6-10.3); Carbon Dioxide 23.0 mmol/L (21-32); Chloride 106.0 mmol/L (98-107); Creatinine Clr Calc Pharmacy 113.9 ml/min; Glucose 125.0 mg/dl (70-99(Fasting)); Magnesium 2.0 mg/dl (1.7-2.4); Potassium 4.0 mmol/L (3.5-5.1); Sodium 135.0 mmol/L (136-145)
[2025-03-30 10:42] VITALS: TEMP 97.9
--- NOTE | 2025-03-30 12:00 | Discharge Summary ---
Discharge Summary Date of Service March 30, 2025 Principal Dx & Hospital Course #1 = Principal Diagnosis (1) Bacteremia: (2) Atrial fibrillation with RVR: (3) Weakness: (4) Type 2 diabetes mellitus: (5) Hypertension: (6) Facial droop: Plan This patient is an 85-year-old male who presented on 03/26 after sustaining multiple unwitnessed falls at home. Patient lives alone. Prior to these falls, patient had been on the phone with his daughter saying that he felt like he "had the flu". Daughter arrived at his house and found him on the floor. He was febrile at the time. Day of discharge 03/30: VSS Mr. Dong is in good spirits this morning. He has been eating and drinking well in the hospital, but does have difficulty sleeping in the hospital at nighttime. He had a bowel movement this morning which was soft and "string-like" in consistency; brown. No blood in his stool. He again denies all infectious symptoms. He is very eager to return home today if possible. ROS: Patient endorses mild back pain and fatigue. Patient denies fever, chills, night sweats, headache, rashes, tick bites, open lesions/wounds/cuts on the body, dizziness/lightheadedness when getting up to bathroom, dental pain, sore throat, difficulty swallowing, chest pain, chest palpitations, SOB, cough, abdominal pain, N/V/D, burning with urination, blood in the urine or stool, melena, pain in his knees or hips, or numbness or tingling arms or legs #Bacteremia 03/26: Final BCx grew Streptococcus mitis/oralis in 2/4 blood cultures Unclear source UA negative CXR negative Respiratory BioFire negative No skin or open lesions appreciated Mouth examined, and while he does exhibit poor dentition & is a tobacco chewer, there are no open ulcers, erythema, or signs of clear infection in the mouth Overall, feel that this might of been a dental infection given the bacteria growing in the blood DDx also includes sinus infection v. Infected prosthesis (however patient denies any pain at site of his prosthesis) Echocardiogram revealed LVEF at 60 to 65%; no wall motion abnormalities identified; no valvular vegetations identified ID consult appreciated While only 2/4 positive BCx, ID does not believe that this was a contaminant given bacteria as strep mitis If no source is identified, patient will require 2 weeks of IV ceftriaxone P.o. linezolid x 2 weeks might also be an option (platelets okay at 178; no SSRIs), however this would be suboptimal if there is concern for deep infection Continue Rocephin 2000 mg IV q24h for strep coverage Repeat blood cultures drawn on 03/28 with NGTD after 24-hour Discussed with patient and patient's daughter at bedside at bedside Patient expresses a strong desire to be discharged on p.o. linezolid rather than stay in hospital for full course of IV Rocephin VSS at time of discharge; no leukocytosis; patient reports he is asymptomatic on exam Provided counseling on red flags to look out for at home Discharged on linezolid 600 mg p.o. BID x 14 days #Atrial fibrillation with RVR EKG repeated on 03/28 revealing an undetermined rhythm at 128 bpm; irregular irregular; ? Atrial fibrillation with RVR vs atrial flutter Patient denies prior history of atrial fibrillation Trial of metoprolol tartrate 25 mg p.o. x 1 + IV magnesium led to return of regular rate control Touch base with telemetric monitoring team on 03/30, patient has had no recurrence of this rhythm over the past 24 hours [id number] risk score: 3 Discussed with patient Started on Eliquis 5 mg p.o. twice daily on 03/29 Echocardiogram (as above) TSH WNL Will plan to discharge patient on Eliquis 5 mg p.o. twice daily Will also plan to send patient home with a "pill in pocket" prescription for metoprolol succinate 25 mg p.o. PRN for rapid heart rate greater than 120 bpm Provided counseling to patient's daughter over the phone on how to manage this Given patient reports he is unable to tell when he goes into atrial fibrillation with RVR, recommended that they obtain a home pulse oximeter, and take the metoprolol if he is greater than 120 bpm Recommend follow-up cardiac event monitor OP to assess for additional episodes of atrial fibrillation #Bilateral nasal bone fracture Secondary to fall; noted on imaging on arrival Recommend follow-up with ENT outpatient for both nasal bone fracture, as well as to assess for dentition #Generalized weakness Present on admission PT/OT evaluations appreciated Per PT, okay to return home with family support + [facility] upon discharge Accepted by [facility] services for PT and OT #T2DM Will discontinue glipizide indefinitely in this age group due to propensity for causing hypoglycemia. Most recent A1c 6.4%. ADA diet. Sliding scale coverage as needed while in the hospital. #HTN Stable. Continue current medical management. #Facial droop Left side. Appears to be chronic. No prior history of CVA. 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 Disposition: Discharge home with [facility] Updated patient's daughter at bedside on 03/28 - 03/30. Daughter appreciative of conversations. Daughter was also requesting help with travel insurance, as she and her had a 2-week trip planned for [place] upcoming this week, but given she is her father's primary optimization manager/medical POA, this trip will need to be canceled. Spoke with Dr. Rader; will offer assistance / support where possible. Notes For Next Care Provider Patient hospitalized 03/26 to 03/30 for bacteremia. Unclear source, but blood cultures growing Streptococcus mitis/oralis suggestive of a dental/mouth origin. Will plan to have patient follow-up with Dr. Weiss (ENT) for both his nasal fracture as well as to further review his dentition. VSS at time of discharge. No leukocytosis. However his repeat blood cultures are still pending (no growth to date after 24 hours) Discharged home on linezolid 600 mg twice daily x 14 days Additionally, patient had an episode of paroxysmal atrial fibrillation with RVR while in the hospital. No prior history of atrial fibrillation. [id number] score: 3. Started on Eliquis 5 mg p.o. twice daily. Suspect this was secondary to infection. TSH WNL. Rate controlled for 48 hours prior to discharge. Will plan to send patient home with a new "pill in pocket" prescription for metoprolol succinate 25 mg extended release PRN for A-fib with heart rate >120bpm. Recommended that he obtain a home pulse oximeter; this was communicated to daughter/primary optimization manager who will plan to obtain a home pulse ox. Will need follow-up to discuss long-term rate control + outpatient cardiac event monitoring. Admission HPI Per Admitting Provider 85-year-old white male with apparent viral illness who developed weakness and nausea for the past 2 days and has fallen several times. He has suffered a nasal bone fracture that does not need immediate attention. Urine analysis is pending but he has no symptoms of dysuria or hematuria or urinary retention. Potassium is mildly low on admission at 3.3. White count and procalcitonin are elevated. CT scans of the C-spine, face, and head were done in the ED. No evidence of intracranial bleed or previous CVA. He is admitted for further evaluation and treatment. He received intravenous Rocephin and vancomycin in the ED. Rocephin will continue on admission until cultures prove negative for bacterial infection Admission Exam Per Admitting Provider General-alert and oriented x3, no fever, no chills HEENT-head atraumatic and normocephalic except for nasal bridge abrasion and some nasal edema, pupils equal and reactive to light, extraocular muscles intact Neck-no lymphadenopathy or thyromegaly, trachea midline Chest-clear to auscultation. No rales, wheezing or rhonchi Cardiac-regular rate and rhythm, normal S1 and S2 Abdomen-normal bowel sounds, no hepatosplenomegaly Extremities-no cyanosis, clubbing, or edema Neuro-cranial nerves II through XII intact, motor and sensory function within normal limits, strength symmetrical, no focal deficits Psych-normal affect, normal mood Discharge Exam General: no acute distress; daughter at bedside; non-toxic appearing; well- nourished; cooperative; SpO2 96% on RA HEENT: Abrasion appreciated on the bridge of the nose with subsequent edema; no scleral icterus; PERRLA; vision and hearing intact Mouth: Poor dentition; no dental ulcers, erythema, or signs of swelling/infection appreciated Neck: supple; no lymphadenopathy; trachea midline Skin: No rashes appreciated on the abdomen, flanks, or back; warm, dry without signs of tenting; no cyanosis; no rashes, bruising, lesions, or erythema noted CV: chest wall NTP; irregularly irregular rhythm around 80 bpm; pulses intact and symmetric at radial, DP, and PT Lungs: no acute respiratory distress; symmetrical chest wall expansion; clear breath sounds across all lung mc w/o adventitious sounds; no wheezing ABD: Soft, NTP in all 4 quadrants; BS present; no rebound/guarding; no distention Back: NTP in the upper spine and lower spine; no sacral ulcers appreciated; no rashes or open lesions MSK: no tics or fasciculations; no edema noted in the LEs b/l, nonerythematous; 5/5 dividend clerk strength bilaterally Neuro: A&Ox3; normal mood and affect; fluent speech; sensation grossly intact symmetric in the upper and lower extremities bilaterally Discharge Plan Discharge Items Patient Disposition: Home - Home Health Services Reason For Visit: FALL Discharge Diagnosis: Bacteremia, fall Condition on Discharge: Fair Activity: As commented below Activity Comment: Follow recommendations from home health PT/OT services Non-emergency contact: Primary Care Provider Call non-emergency contact if: you have any medication questions, your symptoms worsen, your pain is not controlled, you have a fever and your temperature is above 101.5 Follow-up/Referrals: Hua Batres MD [Primary Care Provider] - 04/11/25 1:30 pm Diet: Carb Consistent or DM2 Addtl Attending Provider Instructions: You were hospitalized at [facility] from 03/26 - 03/30 after sustaining multiple falls at home. On arrival, you were extremely weak with low-grade fevers. Blood cultures were drawn, which grew a bacteria called "Streptococcus mitis/oralis". It is suspected that a bloodstream infection (i.e. "bacteremia") was the cause of your fever, generalized weakness, and falls. You underwent a thorough workup, but a clear source for this infection was not identified: Clean urine, no pneumonia on chest x-ray, no open rashes or bruising on the skin, and viral panel for respiratory illness was negative. Despite no obvious ulcers or signs of infection to mouth it is suspected that this was a dental infection caused this blood stream infection based on the bacteria that was identified. At time of discharge, your vitals are stable, and you do not have a elevated white blood cell count to indicate signs of severe infection. Repeat blood cultures showed no growth to date, indicating that the IV antibiotics that you received in the hospital (ceftriaxone) has been helping to resolve your symptoms. We touch base with our infectious disease doctors, and they feel that you are safe to return home at this time on an antibiotic called linezolid x 2 weeks. Please take this antibiotic for the full course even if you begin to feel better. Additionally, while you are in the hospital you had a cardiac arrhythmia called "atrial fibrillation". While this is the most common arrhythmia we see in the hospital, having an elevated/irregular heart rate can put you at increased risk for cardiovascular events, such as heart attacks or strokes. For this reason, we started a blood thinner called Eliquis, as well as gave you a beta-arturo medication called metoprolol to slow down your heart rate. Please continue taking Eliquis upon leaving the hospital. We are also sending you home on a "pill in pocket" tablets for metoprolol. It was recommended that you obtain a device called a "pulse oximeter", which can be used to check your heart rate. If you ever check your heart rate, and find that it irregular/greater than 120 bpm, we recommend that you take the metoprolol. The primary side effect of metoprolol is dizziness, lightheadedness, and generalized fatigue. We also recommend that you obtain a home blood pressure cuff and check your blood pressure daily.. If your systolic blood pressure (top number) is at or below 100, do not take metoprolol. Likewise if your heart rate is ever less than 60 bpm, do not take metoprolol. Regarding your falls at home, our physical therapy teams worked with you and are recommending that you return home with home health services. Our case resource manager have set you up with [facility] home health for PT/OT. Please be on the look out for their correspondence. Please gradually resume previous activity as tolerated and follow all PT/OT instructions. You are safe to resume driving so long as you do not feel dizzy, lightheaded, or fevers. The following changes have been made to your medication list: - Added linezolid 600 mg twice daily x 14 days - Added apixaban 5 mg twice daily - Added metoprolol succinate 25 mg to be taken NEEDED for episodes of atrial fibrillation with rapid heart rate at > 120bpm - Discontinue glipizide indefinitely due to age + propensity to cause hypoglycemia Please plan to follow-up with your PCP in the next 7 to 10 days for a transitional care appointment. We also recommend that you follow-up with one of our ENT doctors (Dr. Weiss) for the nasal bone fracture you sustained in your fall, as well as to further assess your current dentition. It is strongly recommended that you stop chewing tobacco. If you develop any new or worsening symptoms, such as fever, chills, chest pain, chest palpitations, trouble breathing, intractable to pain, pain at your prosthetic sites, or severe intractable back pain, please return to the Emergency Department immediately. It was a pleasure taking care of you. Please reach out with any questions or concerns. Sincerely, The Hospital medicine team at [facility] Pending Studies at Discharge: Yes Studies:: Repeat blood culture with no growth to date x 24 hours Stand-Alone Forms: My [facility] Medications and DC Order Prescriptions: New linezolid 600 mg tablet 600 mg PO Q12H 14 Days Qty: 28 0RF Rx Instructions: Take 1 tablet by mouth twice daily x 14 days metoprolol succinate 25 mg tablet extended release 24 hr 25 mg PO DAILY PRN (Reason: Atrial fibrillation with RVR) Qty: 20 0RF Rx Instructions: Take 1 tablet by mouth NEEDED whenever you feel like you are going into an episode of atrial fibrillation with rapid heart rate (HR > 120bpm) losartan 50 mg tablet 50 mg PO HS Qty: 60 0RF Rx Instructions: Take 1 tablet by mouth at bedtime Eliquis 5 mg tablet 5 mg PO BID Qty: 60 0RF Rx Instructions: Take 1 tablet by mouth twice daily Continued (DME) lancets [OneTouch Delica Plus Lancet] 33 gauge misc See Rx Instructions .Route Qty: 100 3RF Rx Instructions: testing daily metformin 500 mg tablet extended release 24 hr 1,000 mg PO BID 90 Days Qty: 360 3RF hydrochlorothiazide 12.5 mg tablet 12.5 mg PO PM Qty: 90 3RF tamsulosin 0.4 mg capsule 0.4 mg PO HS Qty: 90 3RF simvastatin 20 mg tablet 20 mg PO HS Qty: 90 3RF cholecalciferol (vitamin D3) 2,000 unit capsule 2,000 units PO PM Qty: 30 (DME) OneTouch Ultra Test Strip See Rx Instructions .Route Qty: 100 3RF Rx Instructions: testing 1 time daily acetaminophen 500 mg tablet 1,000 mg PO BID PRN (Reason: fever) Discontinued glimepiride 2 mg tablet 2 mg PO BID Qty: 180 3RF losartan 50 mg tablet 50 mg PO PM Qty: 90 3RF Discharge Orders: Discharge Order (Routine); Ordered 03/30/25 Ordered By: Hammad Ronquillo/Other Patient Handouts: Linezolid Oral Tablet, Preventing Falls in the Home, AFib Preventing Stroke Admission Data Admit Date/Time: 09/06/25 14:25 Attending Provider: Kole Meeks Admit Provider: John Flores Primary Care Provider: Hua Batres Other Providers: John Flores; Karen Porter; Liz Amaral; Courtney Page; Selene Hinojosa; Stacey Bai; Joaquina Keller; [facility],Home Healthcare Other Interventions: Discharge Summary Assessment (RN) Last Done: 03/30/25 12:53 Hospital Stay Data Consultations 03/26/25 14:01 ED Decision to Admit Stat 03/27/25 08:31 Consult Infectious Diseases Routine Diagnostic Imagining Performed 03/26/25 12:14 CT cervical spine wo con Stat CT face [CT facial bones wo con] Stat CT head/brain wo con Stat Discharge Instructions Given to Patient (Per Discharging Provider) You were hospitalized at [facility] from 03/26 - 03/30 after sustaining multiple falls at home. On arrival, you were extremely weak with low-grade fevers. Blood cultures were drawn, which grew a bacteria called "Streptococcus mitis/oralis". It is suspected that a bloodstream infection (i.e. "bacteremia") was the cause of your fever, generalized weakness, and falls. You underwent a thorough workup, but a clear source for this infection was not identified: Clean urine, no pneumonia on chest x-ray, no open rashes or bruising on the skin, and viral panel for respiratory illness was negative. Despite no obvious ulcers or signs of infection to mouth it is suspected that this was a dental infection caused this blood stream infection based on the bacteria that was identified. At time of discharge, your vitals are stable, and you do not have a elevated white blood cell count to indicate signs of severe infection. Repeat blood cultures showed no growth to date, indicating that the IV antibiotics that you received in the hospital (ceftriaxone) has been helping to resolve your symptoms. We touch base with our infectious disease doctors, and they feel that you are safe to return home at this time on an antibiotic called linezolid x 2 weeks. Please take this antibiotic for the full course even if you begin to feel better. Additionally, while you are in the hospital you had a cardiac arrhythmia called "atrial fibrillation". While this is the most common arrhythmia we see in the hospital, having an elevated/irregular heart rate can put you at increased risk for cardiovascular events, such as heart attacks or strokes. For this reason, we started a blood thinner called Eliquis, as well as gave you a beta-arturo medication called metoprolol to slow down your heart rate. Please continue taking Eliquis upon leaving the hospital. We are also sending you home on a "pill in pocket" tablets for metoprolol. It was recommended that you obtain a device called a "pulse oximeter", which can be used to check your heart rate. If you ever check your heart rate, and find that it irregular/greater than 120 bpm, we recommend that you take the metoprolol. The primary side effect of metoprolol is dizziness, lightheadedness, and generalized fatigue. We also recommend that you obtain a home blood pressure cuff and check your blood pressure daily.. If your systolic blood pressure (top number) is at or below 100, do not take metoprolol. Likewise if your heart rate is ever less than 60 bpm, do not take metoprolol. Regarding your falls at home, our physical therapy teams worked with you and are recommending that you return home with home health services. Our case resource manager have set you up with [facility] home health for PT/OT. Please be on the look out for their correspondence. Please gradually resume previous activity as tolerated and follow all PT/OT instructions. You are safe to resume driving so long as you do not feel dizzy, lightheaded, or fevers. The following changes have been made to your medication list: - Added linezolid 600 mg twice daily x 14 days - Added apixaban 5 mg twice daily - Added metoprolol succinate 25 mg to be taken NEEDED for episodes of atrial fibrillation with rapid heart rate at > 120bpm - Discontinue glipizide indefinitely due to age + propensity to cause hypoglycemia Please plan to follow-up with your PCP in the next 7 to 10 days for a transitional care appointment. We also recommend that you follow-up with one of our ENT doctors (Dr. Weiss) for the nasal bone fracture you sustained in your fall, as well as to further assess your current dentition. It is strongly recommended that you stop chewing tobacco. If you develop any new or worsening symptoms, such as fever, chills, chest pain, chest palpitations, trouble breathing, intractable to pain, pain at your prosthetic sites, or severe intractable back pain, please return to the Emergency Department immediately. It was a pleasure taking care of you. Please reach out with any questions or concerns. Sincerely, The Hospital medicine team at [facility] Total Time Total Time Spent Total Time Spent (In Minutes): 35 [place] [address] INP/OBS DISCH >30 MIN Patient Type Established Medical Decision Making High Complexity Diagnoses Bacteremia R78.81 Atrial fibrillation with RVR I48.91 Weakness R53.1 Type 2 diabetes mellitus E11.9 Hypertension I10 Facial droop R29.810
[2025-03-30 12:55] VITALS: BP 105/66; PULSE 61
== END 2025-03-30 13:13 | disposition home health service (06) | DRG 872 ==
LOC: SUATTDRO → ED 12:05 → EDINP 14:25 → SUATTDRO 14:25 → 2N 18:22